=== PATIENT | male | born 1960 | race Caucasian/White ===

== ENCOUNTER 2016-06-08 13:07 | Emergency (ER) | payer OTHER ==
[~2016-06-08] VITALS: Ht 167.6 cm; Wt 117.0 kg
[~2016-06-08 13:07] MED LIST: CYAN10005 PO; ESCI10TA17 PO; ESOM40GR PO; IPRA1AER2 INH; MONT1TAB3 PO; MULT-506 PO; PREG100C PO; ZOLP10TA PO
[2016-06-08 13:10] VITALS: TEMP 36.8; Ht 167.6 cm; Wt 117.0 kg
[2016-06-08] MEDS ORDERED: PRLSR20 PO (13:50)
[2016-06-08] MEDS ORDERED: SODIUM CHLORIDE 0.9% 1000ML 500 ML IV STA (14:08)
[2016-06-08] MEDS ORDERED: SODIUM CHLORIDE 0.9% 1000ML 1,000 ML IV STA (14:08)
[2016-06-08 14:19] LABS: BASO % 0.6 %; BASO ABS # 0.06 K/uL (0-0.2); COMPLETE YES; EOS % 1.3 %; HEMATOCRIT 43.1 % (42-52); IG% 0.4 %; LYMPH % 18.5 %; LYMPH ABS # 1.73 K/uL (1.2-3.4); MEAN CELL VOLUME 86.7 fL (80-100); MEAN CORPUSCULAR HEMOGLOBIN 30.4 pg (25-34); MEAN PLATELET VOLUME 9.4 fL (7.4-10.4); MONO % 8.5 %; NEUT % 70.7 %; PLATELET COUNT 236 K/uL (130-400); RED BLOOD COUNT 4.97 M/uL (4.7-6.1); WHITE BLOOD COUNT 9.34 K/uL (4.8-10.8)
--- NOTE | 2016-06-08 14:23 | EMERGENCY ROOM VISIT NOTE ---
History Report prepared by Mary: Halina Washington Under the Supervision of: Dr. Chavez Roberts M.D. First contact with patient: 14:00 Chief Complaint: SYNCOPE Stated Complaint: TONGUE IS NUMB, SYNCOPE Nursing Triage Summary: patient states while at camp making a fire he "felt funny" patient states girlfriend told him he fell backwards and hit his head off the ground. patient denies neck pain. states he does have a headache. "I think I bit my tongue" I havent been eating well, my mother just last week. I used to be a diabetic but after my heart surgery, I havent been diabetic since. History of Present Illness The patient is a 56 year old male who presents to the Emergency Room with complaints of a sudden syncopal episode that occurred three hours ago. He currently rates his discomfort as a 5/10 in severity. The patient states that in the past he had issues with diabetes. He states that once he had his gastric bypass surgery, he no longer had to take medications for diabetes. The patient states that today he was at his camp and went outside to make a fire. He states that he felt that his blood glucose was dropping so he put a sugar pill in his mouth. The patient states that he was told by his girlfriend that he fell backwards hitting his head, and clenched up. He states that he does not remember the series of events. The patient states that his girlfriend gave him three juice boxes and states that the first thing he remembers is sitting on the deck eating poptarts. The patient states that after he had the poptarts and juice boxes, his blood glucose was 165. He states that he now feels back to baseline, other than noting that he bit his tongue and it feels numb now. The patient states that prior to the event he felt like he was floating. He denies any chest pain or shortness of breath. The patient denies any recent illness. He denies any diarrhea, vomiting, loss of control of his bowel or bladder, or urinary symptoms. The patient states that he ate breakfast this morning. He denies any history of seizures or previous syncopal episodes. The patient notes that he has been under increased stress recently due to recently finding his mother suddenly one morning. Source of History: patient Onset: three hours ago Position: other (global) Symptom Intensity: 5/10 Quality: other (syncopal episode) Timing: other (sudden) Associated Symptoms: + numbness (tongue), No SOB, No chest pain, No diarrhea , No urinary symptoms, No vomiting Note: Associated Symptoms: tongue bite, felt like he was floating Review of Systems See HPI for pertinent positives & negatives. A total of 10 systems reviewed and were otherwise negative. Past Medical & Surgical Medical Problems: (1) Asthma (2) Diabetes mellitus type 2 (3) Hyperlipidemia (4) Hypertensive disorder, systemic arterial (5) HYPOVENTILATION OBESITY SYNDROM (6) Morbid obesity (7) P[place]AN Family History Diabetes mellitus FH: heart disease FHx: cancer Social History Smoking Status: Former Smoker Alcohol Use: none Marital Status: in relationship Housing Status: lives with family Occupation Status: unemployed Current/Historical Medications Scheduled Cyanocobalamin (Vitamin B-12), 1,000 MCG PO WK Escitalopram (Lexapro), 10 MG PO HS Montelukast Sodium (Singulair), 10 MG PO HS Multivitamin (Multivitamin), 1 TAB PO QAM Omeprazole (Prilosec), 40 MG PO DAILY Pregabalin (Lyrica), 100 MG PO BID Zolpidem Tartrate (Ambien), 10 MG PO HS Scheduled PRN Ipratropium-Albuterol (Combivent Respimat), 1 PUFFS INH QID PRN for Shortness of Breath Allergies Coded Allergies: Azithromycin (Verified Allergy, Severe, SHORTNESS OF BREATH, 07/09/15) Penicillins (Verified Allergy, Severe, SHORTNESS OF BREATH, 07/09/15) Erythromycin (Verified Allergy, Unknown, E-MYCIN, 07/09/15) Quinolones (Verified Allergy, Unknown, `, 07/09/15) Physical Exam Vital Signs Date Time Temp Pulse Resp B/P Pulse Ox O2 Delivery O2 Flow Rate FiO2 06/08/16 16:53 66 18 160/110 95 06/08/16 16:00 63 18 155/115 96 Room Air 06/08/16 14:52 74 15 143/106 92 Room Air 06/08/16 14:22 79 149/108 99 Room Air 83 182/124 86 163/113 06/08/16 13:34 86 06/08/16 13:10 36.8 91 18 177/105 95 Room Air Physical Exam GENERAL: Patient is in no acute distress. HEENT: No acute trauma, normocephalic atraumatic, mucous membranes moist, no obvious tongue bite, no nasal congestion, no scleral icterus. NECK: No stridor, no adenopathy, no meningismus, trachea is midline. LUNGS: Clear to auscultation bilaterally, no wheeze, no rhonchi, breath sounds equal. HEART: Without murmurs gallops or rubs, regular rate and rhythm. ABDOMEN: Soft, nontender, bowel sounds positive, no hernias, no peritonitis. EXTREMITIES: No cyanosis or edema, full range of motion of all the joints without pain or difficulty, no signs for acute trauma. NEUROLOGIC: Oriented x 3, no acute motor or sensory deficits, no focal weakness. SKIN: No rash, no jaundice, no diaphoresis. Medical Decision & Procedures ER Provider Diagnostic Interpretation: Orthostatic vital signs are negative X ray results and stated below per my interpretation and radiologist interpretation. Other radiology results and stated below per my review and radiologist interpretation: HEAD CT NONCONTRAST CT DOSE: 623.48 mGy.cm HISTORY: Mental status change EVALUATE ALTERED MENTAL STATUS/WEAKNESS TECHNIQUE: Multiaxial CT images of the head were performed without the use of intravenous contrast. Comparison: None. Findings: The paranasal sinuses and mastoid air cells are clear. The calvarium and skull base are intact. The ventricles and sulci are within normal limits. There is no mass, hematoma, midline shift, or acute infarct. Impression: No acute intracranial abnormality. Electronically signed by: Uriah Lepe M.D. 06/08/2016 2:50 PM Dictated Date/Time: 06/08/2016 2:49 PM CHEST ONE VIEW PORTABLE CLINICAL HISTORY: EVALUATE ALTERED MENTAL STATUS/WEAKNESS dyspnea COMPARISON STUDY: 10/25/2014 FINDINGS: Mild cardiomegaly. Mild prominence pulmonary vasculature. Diaphragms smooth. IMPRESSION: Early congestive heart failure Electronically signed by: Uirah Lepe M.D. 06/08/2016 2:34 PM Dictated Date/Time: 06/08/2016 2:33 PM Laboratory Results 06/08/16 13:29 Red Blood Count 4.97, Mean Corpuscular Volume 86.7, Mean Corpuscular Hemoglobin 30.4, Mean Corpuscular Hemoglobin Concent 35.0, Mean Platelet Volume 9.4, Neutrophils (%) (Auto) 70.7, Lymphocytes (%) (Auto) 18.5, Monocytes (%) (Auto) 8.5, Eosinophils (%) (Auto) 1.3, Basophils (%) (Auto) 0.6, Neutrophils # (Auto) 6.60, Lymphocytes # (Auto) 1.73, Monocytes # (Auto) 0.79, Eosinophils # (Auto) 0.12, Basophils # (Auto) 0.06 06/08/16 13:29 Test 06/08/16 13:29 06/08/16 16:19 White Blood Count 9.34 K/uL (4.8-10.8) Red Blood Count 4.97 M/uL (4.7-6.1) Hemoglobin 15.1 g/dL (14.0-18.0) Hematocrit 43.1 % (42-52) Mean Corpuscular Volume 86.7 fL (80-100) Mean Corpuscular Hemoglobin 30.4 pg (25-34) Mean Corpuscular Hemoglobin Concent 35.0 g/dl (32-36) Platelet Count 236 K/uL (130-400) Mean Platelet Volume 9.4 fL (7.4-10.4) Neutrophils (%) (Auto) 70.7 % Lymphocytes (%) (Auto) 18.5 % Monocytes (%) (Auto) 8.5 % Eosinophils (%) (Auto) 1.3 % Basophils (%) (Auto) 0.6 % Neutrophils # (Auto) 6.60 K/uL (1.4-6.5) Lymphocytes # (Auto) 1.73 K/uL (1.2-3.4) Monocytes # (Auto) 0.79 K/uL (0.11-0.59) Eosinophils # (Auto) 0.12 K/uL (0-0.5) Basophils # (Auto) 0.06 K/uL (0-0.2) RDW Standard Deviation 41.2 fL (36.4-46.3) RDW Coefficient of Variation 12.9 % (11.5-14.5) Immature Granulocyte % (Auto) 0.4 % Immature Granulocyte # (Auto) 0.04 K/uL (0.00-0.02) Anion Gap 12.0 mmol/L (3-11) Est Creatinine Clear Calc Drug Dose 105.8 ml/min Estimated GFR () 103.4 Estimated GFR (Non- 89.3 BUN/Creatinine Ratio 17.2 (10-20) Calcium Level 8.5 mg/dl (8.5-10.1) Total Bilirubin 0.2 mg/dl (0.2-1) Aspartate Amino Transf (AST/SGOT) 32 U/L (15-37) Alanine Aminotransferase (ALT/SGPT) 55 U/L (12-78) Alkaline Phosphatase 105 U/L (45-117) Pro-B-Type Natriuretic Peptide 22 pg/ml (0-900) Total Protein 8.0 gm/dl (6.4-8.2) Albumin 4.3 gm/dl (3.4-5.0) Globulin 3.7 gm/dl (2.5-4.0) Albumin/Globulin Ratio 1.2 (0.9-2) Thyroid Stimulating Hormone (TSH) 1.490 uIu/ml (0.300-4.500) Bedside Troponin I 0.000 ng/ml (0-0.045) Laboratory results reviewed by me. Medications Administered Medications (Trade) Dose Ordered Sig/Jenn Route Start Time Stop Time Status Last Admin Dose Admin Sodium Chloride (Nss 1000ml) 500 ml @ 999 mls/hr Q31M STAT IV 06/08/16 14:08 06/08/16 14:38 DC 06/08/16 14:08 999 MLS/HR ECG Indication: syncope Rate (beats per minute): 80 Rhythm: normal sinus Findings: no acute ischemic change, no ectopy ED Course 1402: The patient was evaluated in room A4B. A complete history and physical exam was performed. 1408: Ordered Sodium Chloride 1000 ml @ 200 mls/hr IV, Sodium Chloride 500 ml @ 999 mls/hr IV. 1555: I discussed the patients case with Dr. Guadarrama, Neurology. She states that she will follow up with the patient as an outpatient. 1623: I reevaluated the patient and he is doing fine. His girlfriend is at the bedside and confirmed the patients story of the series of events. 1633: I reevaluated the patient and he is resting comfortably. I discussed the exam findings with him and I discussed the treatment plan. He verbalized complete understanding and agreement. He is ready to go home. Medical Decision The patient is a 56 year old male who presents to the ED with complaints of syncope. Differential diagnoses considered include syncope, seizure, hypoglycemia, dysrhythmia, anemia, electrolyte imbalance, infection. The patient presents after a possible seizure-like event or syncopal episode. There is no leukocytosis or concerning anemia. No significant electrolyte abnormality, kidney failure or hepatitis. The patient appears to be in a euthyroid state. Neurologic exam was normal and nonfocal. EKG shows a normal sinus rhythm, no ischemia. Cardiac enzyme testing 2 does not suggest acute cardiac injury. Chest x-ray does not show any pneumonia, the radiologist questioned CHF but I thought the findings were more from his larger body habitus , BNP was not elevated. Brain CT showed no acute bleed or mass effect. Orthostatic vital signs were negative. The patient received IV saline, he has done well, he feels back to baseline. I did discuss his case with the on-call neurologist. Patient's blood pressure has been high here although, he states he does not have a history of high blood pressure. He is nervous and this may be the reason for the higher pressure. As he is asymptomatic, I do think we should have him follow with his doctor to see if his pressure is high in the office. No medications to be started today. The patient's event today may have been a syncopal event with some seizure-like activity, primary seizure is also a consideration. I suppose hypoglycemia is possible as well. The patient will follow with his doctor and with neurology, he was encouraged not to drive until given clearance. He can return here for any return of symptoms. Consults Time Called: 1524 Consulting Physician: Dr. Guadarrama, Neurology Returned Call: [phone] I discussed the patients case with Dr. Guadarrama, Neurology. She states that she will follow up with the patient as an outpatient. Impression Primary Impression: Syncope Additional Impression: Hypertension Scribe Attestation The scribe's documentation has been prepared under my direction and personally reviewed by me in its entirety. I confirm that the note above accurately reflects all work, treatment, procedures, and medical decision making performed by me. Departure Information Dispostion Home / Self-Care Referrals Jarrett Rousseau PA-C (PCP) Forms HOME CARE DOCUMENTATION FORM, IMPORTANT VISIT INFORMATION Patient Instructions My [facility] Additional Instructions rest stay well hydrated follow with your doctor for a recheck this week follow with neurology return if worsening do not drive until you receive clearance from your doctor or neurology all testing today was ok as we discussed Problem Qualifiers
[2016-06-08 14:27] LABS: BUN/CREATININE RATIO 17.2 (10-20); CALCIUM 8.5 mg/dl (8.5-10.1); CREATININE 0.96 mg/dl (0.60-1.40); POTASSIUM 3.9 mmol/L (3.5-5.1)
--- NOTE | 2016-06-08 14:35 | DIAGNOSTIC IMAGING REPORT ---
CHEST ONE VIEW PORTABLE CLINICAL HISTORY: EVALUATE ALTERED MENTAL STATUS/WEAKNESS dyspnea COMPARISON STUDY: 10/25/2014 FINDINGS: Mild cardiomegaly. Mild prominence pulmonary vasculature. Diaphragms smooth. IMPRESSION: Early congestive heart failure Electronically signed by: Uriah Lepe M.D. 06/08/2016 2:34 PM Dictated Date/Time: 06/08/2016 2:33 PM
[2016-06-08 14:37] LABS: ALB/GLOB RATIO 1.2 (0.9-2); THYROID STIMULATING HORMONE 1.49 uIu/ml (0.300-4.500)
--- NOTE | 2016-06-08 14:51 | DIAGNOSTIC IMAGING REPORT ---
HEAD CT NONCONTRAST CT DOSE: 623.48 mGy.cm HISTORY: Mental status change EVALUATE ALTERED MENTAL STATUS/WEAKNESS TECHNIQUE: Multiaxial CT images of the head were performed without the use of intravenous contrast. Comparison: None. Findings: The paranasal sinuses and mastoid air cells are clear. The calvarium and skull base are intact. The ventricles and sulci are within normal limits. There is no mass, hematoma, midline shift, or acute infarct. Impression: No acute intracranial abnormality. Electronically signed by: Uriah Lepe M.D. 06/08/2016 2:50 PM Dictated Date/Time: 06/08/2016 2:49 PM
[2016-06-08 16:53] VITALS: BP 160/110; PULSE 66; O2SAT 95
== END 2016-06-08 16:56 | disposition home or self-care (01) ==
LOC: C.EDB 13:09 → C.EDA 16:56
DX: R55 Syncope and collapse (principal); I10 Essential (primary) hypertension; Z98.84 Bariatric surgery status; E11.9 Type 2 diabetes mellitus without complications; J45.909 Unspecified asthma, uncomplicated; Z83.3 Family history of diabetes mellitus; Z87.891 Personal history of nicotine dependence

== ENCOUNTER → 2017-11-17 | Outpatient (CLI) | payer OTHER ==
[~2017-11-17] MED LIST changes: +ARFO15NE NEB; -ESOM40GR PO; -IPRA1AER2 INH; +OMEP40CA41 PO; -PREG100C PO
--- NOTE | 2017-11-18 05:18 | PAP/PSG TECHNICIAN REPORT ---
[facility] [employer] Polysomnogram Report Study name: None Report date: 11/18/2017 Study date: 11/17/2017 Referring Physician: TERI MORROW PA-C Name: RADHA GUSMAN Interpreting Physician: Adam Eden M.D. Date of : 1960 Head [employer] Baggage: Shana Edwards RPSGT. Sex: Male Age: 57 Study Type: PSG Weight: 218 lbs Height: 57 years, Height 5' 7" BMI: 34.14 Medications: LYRICA 100 MG, OXYCODONE-ACETAMINOPHEN 10-325 MG, ZOLPIDEM 10 MG, LEXAPRO 20 MG, SINGULAIR 10 MG, PRILOSEC 20 MG, LISINOPRIL 10 MG, ZYRTEC 10 MG, BENADRYL 25 MG, MULTI VIT Patient History 57 yr-old male here for a baseline study. He has had previous sleep testing. 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 He is back to assess his CHINMAY. His [employer] scale is 10. The test was started on room air. ETCO2 testing was not utilized during this study. Room 3 Parameters Monitored NPSG: E1-M2, E2-M1, Fp1-M2, Fp2-M1, F3-M2, F4-M2, F4-M1, C3-M2, C4-M2, C4-M1, O1-M2, O2-M2, O2-M1, T3-M2, T4-M1, P3-M2, P4-M1, CHIN1, CHIN2, HR, EKG, Legs, PFLOW, SNOR, FLOW, CFLOW, Tidal Volume, THOR, ABDO, SpO2, PLTH, CPRESS, ETCO2 Wave, ETCO2, pH Sleep Architecture Sleep Stages Time at Lights Off 9:15:23 PM STAGES Time (min.) TST (%) Time at Lights On 4:31:53 AM Wake 39.0 -- Total Recording Time (TRT) 436.50 min. N1 177.0 45 Total Sleep Period (TSP) 424.0 min. N2 187.0 47 Total Sleep Time (TST) 397.5min. N3 0.0 0 Awake Time 39.0 min. REM 33.5 8 Wake after Sleep Onset 36.5 min. Sleep Efficiency (SE) 91 % Sleep Onset Latency (DARLENE) 2.5 min. Number of Stage 1 Shifts None Awakenings 40 Stage Changes 130 Number of REM periods 1 REM 33.5 8 REM Latency 184.0 min. NREM 364.0 92 Body Position Analysis Supine Right Left Side Prone Vertical Total Sleep Time (min.) 228.5 200.0 0.0 199.96 0.0 0.0 Total Sleep Time (%) 50% 50% 0% 50 0% N/A% Total Sleep Time REM (min.) 0.0 33.5 0.0 None 0.0 0.0 Total Sleep Time NREM (min.) 197.5 166.5 0.0 None 0.0 0.0 Intermittent Wake (min.) 31.0 8.0 0.0 None 0.0 0.0 Total Sleep Period (%) 51% None None None None None Arousals Myoclonus (PLM) * Events Count Index Events Count Index Spontaneous 30 5 Events Awake (PLMW) 131 201.5 Respiratory 140 22.5 Events Asleep w/ Arousal (PLMA) 22 3.3 PLM 22 3 Events Asleep w/o Arousal (PLMS) 433 65.4 Snoring 16 2 Total Asleep 455 68.7 Total 206 31 Total 586 81 Respiratory Analysis * CA OA MA CH H RERA Total Count 2 95 4 0 81 21 182 Index 0.3 14.3 0.6 0 12.2 3 30.6 Mean Duration 20.3 31.1 36.0 0.00 29.3 19.8 29.2 Longest Duration 21.4 58.9 43.1 0.00 43.1 24.2 80.1 Respiratory Event Summary Total Supine ~Supine Right Left Prone REM NREM Apneas Count 101 97 4 4 N/A N/A 1 100 Index 15.2 29 1 1.2 N/A N/A 2 16 Hypopneas (4% Desat) Count 81 44 37 37 N/A N/A 8 73 Index 12.2 13.4 11 11.1 N/A N/A 14.3 12.0 Apneas & All Hypopneas Count 182 141 41 41 N/A N/A 9 173 Index 27.5 43 12 12 N/A N/A 16.1 28.5 Respiratory Events (Twister Hand+All Hyp+RERA) Count 182 156 47 47 N/A N/A 9 173 Index 30.6 47 14 14.1 N/A N/A 16.1 32.0 Respiratory Related Arousal Count 140 156 28 28 N/A N/A 3 146 Index 22.5 37 8 8 N/A N/A 5 24 Snoring Analysis Supine Right Left Prone REM NREM Total Snore duration 73.4 min Snores count 993 1,261 N/A N/A 193 2,061 2,254 Snore mean duration 2.0 Sec Snores index 302 378 N/A N/A 345.7 339.7 340.2 TST with snoring (%) 18.5% Desaturation Event Summary: Minimum %SpO2 Event Count Mean/Min/Max Duration(sec.) Desaturation Index % Time In Bed > 90 169 31.0 / 6.0 / 56.5 30.9 79.9 86 - 90 3 21.8 / 18.0 / 24.8 2.6 16.7 81 - 85 0 N/A 0.0 3.4 76 - 80 0 N/A 0.0 0.0 71 - 75 0 N/A 0.0 0.0 66 - 70 0 N/A 0.0 0.0 61 - 65 0 N/A 0.0 0.0 56 - 60 0 N/A 0.0 0.0 51 - 55 0 N/A 0.0 0.0 < 50 0 N/A 0.0 0.0 Total REM NREM Awake <50% 0.0 min. 0.0 min. 0.0 min. 0.0 min. 51 - 60% 0.0 min. 0.0 min. 0.0 min. 0.0 min. 61 - 70% 0.0 min. 0.0 min. 0.0 min. 0.0 min. 71 - 80% 0.2 min. 0.0 min. 0.2 min. 0.0 min. 81 - 90% 82.7 min. 9.6 min. 65.5 min. 7.6 min. 91 - 100% 328.5 min. 23.9 min. 282.6 min. 21.9 min. Average 92 91 92 92 Minimum SpO2 77 88 77 82 Desaturation Event Index 23.2 16.1 24.4 20.0 # Desat. Events below 89% 62 3 57 2 Time(%) with Saturation below 89% 8.4 0.3 7.1 1.0 Time(min.) with Saturation below 89% 34.6 1.4 29.3 3.9 Heart Rate Analysis Min (bpm) Max (bpm) Average (bpm) Awake 46 130 57 NREM 45 167 55 REM 49 70 56 Overall 45 167 55 Supplemental O2 Values Minimum O2 level: None Value Start Time End Time Head [employer] Comments Mr. Gusman slept in the right and supine positions. No cardiac arrhythmias were noted. PLMs were noted. No bruxism noted. Snoring was noted and scored as a 3 on a scale of 1 through 5. (0=no snoring, 5=snoring loud enough to be heard through a closed door or down the [address]ro way). He woke up to use the restroom one time during the night. After he used the restroom, he stated that he was wide awake and ready to go. The test was ended around 4:30 am. Mr. Gusman stated that he slept about the same as usual. The final report will be interpreted and signed by a sleep physician. The completed physician report will then be placed in the patient medical record. Therapy (cm H2O) 0 TIB (min.) 436.5 TST (min.) 397.5 Sleep Onset (min.) 2.5 REM Onset From Sleep (min.) 184.0 Sleep Efficiency % 91 Wakefulness (%) 9 Wakefulness (min.) 39.0 NREM 1 (%) 45 NREM 1 (min.) 177.0 NREM 2 (%) 47 NREM 2 (min.) 187.0 NREM 3 (%) 0 NREM 3 (min.) 0.0 REM (%) 8 REM (min.) 33.5 # Arousals 206 Arousal Index 31 # Snore 2,254 Snore Index 340.2 AHI 27.5 AHI Supine 43 AHI Non-Supine 12 NREM AHI 28.5 REM AHI 16.1 RDI 30.6 # Obstructive Apnea 95 # Central Apnea 2 # Mixed Apnea 4 # Hypopneas 81 RERAs 21 Total Respiratory Events 212 Time Below SpO2 89% (min.) 30.7 Mean NREM SpO2 (%) 92 Mean REM SpO2 (%) 91 Mean Sleep SpO2 (%) 92 Min NREM SpO2 (%) 77 Min REM SpO2 (%) 88 Position Supine (min.) 228.5 Position Non-supine (min.) 200.0 LM Index Sleep 68.7 LM Index NREM 72.2 LM Index REM 30.4 Mean Heart Rate (bpm) 55 Min Heart Rate (bpm) 45
--- NOTE | 2017-11-20 17:23 | POLYSOMNOGRAPH REPORT ---
CLINICAL DATA: A 57-year-old male with BMI of 34.14, referred by Jeannie Monge PA-C. The patient had a previous diagnosis of sleep apnea and then had bariatric surgery. He returns to reassess the presence or absence of sleep apnea. SLEEP ARCHITECTURE: Total sleep period was 424 minutes. Total sleep time was 397.5 minutes divided between 364 minutes of non-REM sleep and 33.5 minutes of REM sleep. Sleep latency was 2.5 minutes. REM latency was 184 minutes. Sleep efficiency was 91%. Wake after sleep onset was 36 minutes. Sleep consisted of stage N1 45%, stage N2 47%, and REM 8%. AROUSAL DATA: 206 arousals were recorded for an index of 31 per hour. PLM DATA: 455 limb movements during sleep were noted for an index of 16.7 per hour with arousal index of 3.3 per hour. RESPIRATORY DATA: Mrqnsyni-ku-dacene sleep apnea/hypopnea was noted. The AHI was 27.5. The RDI was 30.6. There were 2 central, 95 obstructive and 4 mixed apneic episodes. The longest duration apnea was 59 seconds. There were 81 hypopneic episodes. The longest hypopneic episode was 43 seconds. There were 21 RERAs. The longest RERA was 24.2 seconds. OXIMETRY DATA: Nocturnal hypoxemia was seen. Oxygen willy was 77%. Mean saturation was 92%. EKG: Heart rates ranged from 45-167 beats per minute. No arrhythmias were noted. LOADER OPERATOR'S COMMENTS: The patient slept in the right and supine position. Snoring was moderate, rated 3 on a scale of 1-5. IMPRESSION: [id number]-[id number] sleep apnea/hypopnea with an AHI of 27.5 and RDI of 30.6. RECOMMENDATIONS: The patient should be considered for repeat sleep study with CPAP or use of auto CPAP. [facility]
== END | disposition home or self-care (01) ==
LOC: C.NEUR 20:00
PROVIDERS: ATTEND Physician Assistant
DX: G47.30 Sleep apnea, unspecified (principal)

== ENCOUNTER 2021-10-09 06:31 | Inpatient (IN) ==
--- NOTE | 2021-09-05 14:29 | PAT Medication Instructions ---
Medication Instructions Date of Service September 05, 2021 Home Medications acetaminophen 650 mg tablet,extended release 1,300 mg PO Q12H PRN albuterol sulfate 90 mcg/actuation aerosol inhaler 2 puff INHALATION QID PRN cetirizine 10 mg capsule (Zyrtec) 10 mg PO QAM escitalopram oxalate 20 mg tablet (Lexapro) 20 mg PO QPM gabapentin 100 mg tablet 100 mg PO QAM ibuprofen 200 mg tablet 600 mg PO Q6H PRN lisinopril 20 mg tablet 20 mg PO QAM montelukast 10 mg tablet (Singulair) 10 mg PO QAM multivitamin 1 tab PO QAM omeprazole 20 mg capsule,delayed release 20 mg PO QAM pregabalin 100 mg capsule (Lyrica) 100 mg PO BID ASK your surgeon for instructions ibuprofen 200 mg tablet 600 mg PO Q6H PRN DO NOT take the morning of surgery cetirizine 10 mg capsule (Zyrtec) 10 mg PO QAM lisinopril 20 mg tablet 20 mg PO QAM montelukast 10 mg tablet (Singulair) 10 mg PO QAM multivitamin 1 tab PO QAM Take morning of surgery With a small sip of water, OTHERWISE NOTHING TO EAT OR DRINK AFTER MIDNIGHT: acetaminophen 650 mg tablet,extended release 1,300 mg PO Q12H PRN (if needed) albuterol sulfate 90 mcg/actuation aerosol inhaler 2 puff INHALATION QID PRN (use if needed; please bring with you to hospital day of surgery if possible) gabapentin 100 mg tablet 100 mg PO QAM omeprazole 20 mg capsule,delayed release 20 mg PO QAM pregabalin 100 mg capsule (Lyrica) 100 mg PO BID Take evening before surgery acetaminophen 650 mg tablet,extended release 1,300 mg PO Q12H PRN (if needed) albuterol sulfate 90 mcg/actuation aerosol inhaler 2 puff INHALATION QID PRN (if needed) escitalopram oxalate 20 mg tablet (Lexapro) 20 mg PO QPM pregabalin 100 mg capsule (Lyrica) 100 mg PO BID Other Notes If you have any questions please call us at [phone] or [phone] or [phone] or [phone]
--- NOTE | 2021-09-06 08:59 | Anesthesiology Consultation ---
Date of Service September 06, 2021 Assessment & Plan (1) Encounter for pre-operative examination: - Case discussed with Dr. Alonso who advised patient take 2 puffs of inhaler prior to surgery and is otherwise acceptable risk to proceed pending anesthesiologist evaluation am DOS. Pt verbalized understanding, denied questions or concerns. - bilat vs staged TKA: Pt states discussed this with surgeon and is aware of risks, plans to proceed with bilat TKA. - COVID screening: Per assessment on 09/06/2021: Travel screen negative, no known COVID-19 positive contacts or current COVID-19 related symptoms in past 2 weeks. Surgeon arranging preop COVID testing, scheduled 10/07/2021. Awaiting results. Chart Review Chart Review: Acceptable Risk for Surgery and Patient seen in Pre Admission Testing Teaching & Discussion Pre-Anesthesia Teaching/Discussion Notes: Instructed NPO after midnight before surgery, except medications with 15 cc of water. Medication instructions provi ded according to the PAT guidelines. History Surgery Operation Date: 10/09/21 07:00 Proposed Procedures p Total Knee Arthroplasty Bilateral - Jerardo Plascencia DO Height/Weight Height: 5 ft 6 in Weight: 108.4 kg Allergies Allergy/AdvReac Type Severity Reaction Status Date / Time Penicillins Allergy Severe SHORTNESS Verified 09/05/21 08:50 OF BREATH azithromycin Allergy Unknown Difficulty Verified 09/05/21 08:50 Breathing erythromycin base Allergy Unknown E-MYCIN-HIV Verified 09/05/21 08:50 ES Quinolones Allergy Unknown Unknown Verified 09/05/21 08:50 DOGS Allergy Intermediate SNEEZES, Uncoded 09/05/21 08:50 ITCHY WATERY EYES Medications Home Medications Medication Instructions Recorded Confirmed Last Taken acetaminophen 650 mg 1,300 mg PO Q12H PRN 09/05/21 09/05/21 Unknown tablet,extended release albuterol sulfate 90 mcg/actuation 2 puff INHALATION QID PRN 09/05/21 09/05/21 Unknown aerosol inhaler cetirizine 10 mg capsule (Zyrtec) 10 mg PO QAM 09/05/21 09/05/21 Unknown escitalopram oxalate 20 mg tablet 20 mg PO QPM 09/05/21 09/05/21 Unknown (Lexapro) gabapentin 100 mg tablet 100 mg PO QAM 09/05/21 09/05/21 Unknown ibuprofen 200 mg tablet 600 mg PO Q6H PRN 09/05/21 09/05/21 Unknown lisinopril 20 mg tablet 20 mg PO QAM 09/05/21 09/05/21 Unknown montelukast 10 mg tablet 10 mg PO QAM 09/05/21 09/05/21 Unknown (Singulair) multivitamin 1 tab PO QAM 09/05/21 09/05/21 Unknown omeprazole 20 mg capsule,delayed 20 mg PO QAM 09/05/21 09/05/21 Unknown release pregabalin 100 mg capsule (Lyrica) 100 mg PO BID 09/05/21 09/05/21 Unknown Past Medical History Medical History (Updated 09/10/21 @ 08:18 by Nicolle Raygoza PA-C) Asthma (05/15/11) last rescue inhaler use > 6 months ago; reports occasional exacerbation with seasonal allergies Atrial fibrillation (08/07/11) s/p ablation per pt-now follows with PCP COPD (chronic obstructive pulmonary disease) Depression GERD (gastroesophageal reflux disease) controlled, stable per pt Hypertension controlled, stable per pt Morbid obesity (05/15/11) WT LOSS 200 LBS SINCE GASTRIC BYPASS Sleep apnea no device Type 2 diabetes mellitus hx IDDM, pt states no longer needing medication since gastric bypass; A1c 5.7% 09/2021 Patient denies h/o stroke, seizures, heart attack, heart failure, blood clots or blood transfusions. Exercise / Class Metabolic Activity II 4-5 Yardwork/Stairs/Walk up hill (denies CP or SOB with 1 FOS) Past Family History Family History (Updated 09/05/21 @ 09:04 by Kerrie Rasheed RN) Father Family history of diabetes mellitus Past Surgical History Surgical History (Updated 09/05/21 @ 09:04 by Kerrie Rasheed RN) H/O cardiac radiofrequency ablation 5 YRS AGO History of appendectomy History of arthroscopy LEFT KNEE History of cardioversion History of cholecystectomy History of gastric bypass History of shoulder surgery LEFT Past Anesthesia History No Hx of Anesthesia Complications and No Family Hx of Anesthesia Complications History of PONV No Hx of PONV and No Hx of Motion Sickness Social History Smoking Status: Former smoker Do You Dip or Chew Tobacco: Yes (1 can q 2 days-advised) Smoking End Date: QUIT 15 YRS AGO Hx Alcohol Use: No Hx Substance Use: No Review of Systems Patient denies chest pain, shortness of breath, dyspnea on exertion, fever, chills, cough, wheezing, dizziness, lightheadedness, visual changes or palpitations. Physical Exam Vital Signs Vitals BP 102/64 manual P 53 TEMP 98.5 SP02 94% on RA RESP 17 Physical Full cervical extension range of motion without pain TMD 3.5 finger breaths Mallampati Score 4 Dentition: full lower dentures; denies chipped or loose teeth, implants or bridges Lungs: normal respiratory effort. Good air movement, slight wheezing at end expiration throughout Cardiac: regular rate and rhythm, no murmurs noted Carotid arteries: negative bruit bilat Lab Results Anesthesia Preop Results Results Anesthesia Widget: WBC 6.18 K/uL (4.8-10.8) 09/06/21 Hgb 13.3 g/dL (14.0-18.0) L 09/06/21 Hct 38.9 % (42-52) L 09/06/21 Plt 216 K/uL (130-400) 09/06/21 Na 138 mmol/L (136-145) 09/06/21 K 4.3 mmol/L (3.5-5.1) 09/06/21 Cl 104 mmol/L (98-107) 09/06/21 CO2 29 mmol/L (21-32) 09/06/21 BUN 10 mg/dl (6-23) 09/06/21 Creat 0.89 mg/dl (0.6-1.4) 09/06/21 Glucose Level 77 mg/dl (70-99(Fasting)) 09/06/21 PT 11.0 Seconds (9.0-12.0) 09/06/21 PTT 32.1 Seconds (21.0-31.0) H 09/06/21 INR 1.0 (0.9-1.1) 09/06/21 HA1c 5.7 % (4.5-5.6) H 09/06/21 Urine Color Yellow 09/06/21 Urine Appearance Clear (Clear) 09/06/21 Urine pH 6.5 (4.5-7.5) 09/06/21 Urine Specific [place] 1.006 (1.000-1.030) 09/06/21 Urine Protein Negative (Negative) 09/06/21 Urine Glucose (UA) Negative (Negative) 09/06/21 Urine Ketones Negative (Negative) 09/06/21 Urine Blood Negative (Negative) 09/06/21 Urine Nitrite Negative (Negative) 09/06/21 Urine Bilirubin Negative (Negative) 09/06/21 Urine Urobilinogen Negative (Negative) 09/06/21 Urine Leukocyte Esterase Negative (Negative) 09/06/21 Blood Type AB Negative 09/06/21 Antibody Screen NEGATIVE 09/06/21 Testing Electrocardiogram Date: 09/06/21 Sinus bradycardia, rate 51 bpm Chest X-Ray Date: 09/06/21 Cardiomediastinal and hilar silhouettes are within normal limits. There is no pneumothorax, pleural effusion, airspace consolidation or overt pulmonary edema. Degenerative changes of the shoulders and spine. Sigmoidal thoracolumbar scoliosis. Likely chronic mid thoracic compression deformities. Cholecystectomy clips. IMPRESSION: No acute process.
--- NOTE | 2021-09-16 08:12 | History & Physical Report ---
Date of Service September 16, 2021 date of surgery: 10/09/21 Procedure: Bilateral Total Knee Arthroplasties Surgeon: Jerardo Plascencia Assessment & Plan (1) Degenerative arthritis of knee, bilateral: Plan: Presents for preop evaluation prior to bilateral total knee replacements at [facility]. He has failed conservative measures including left knee arthroscopy in 2006 and again in 2012, would like to proceed with bilateral knee replacement. He is scheduled for [facility] patient matched bilateral total knees. Discussed discharge to home with home health physical therapy. We will plan also on Xarelto x1 month for DVT prophylaxis. The risks and benefits have been discussed including, but not limited to, risk of infection, nerve injury, stiffness, loss of motion, failure to improve, etc. Reasonable outcomes and options of treatment were discussed. An explanation of appropriate alternatives to the procedure that may be advantageous were discussed and their risks and benefits, as well as the risks and benefits of not proceeding with treatment. I offered to answer any additional inquiries concerning the treatment involved. All the patient's questions were answered. The patient is agreeable, understanding of the treatment plan and alternatives, and wishes to proceed with the treatment plan. History of Present Illness Chief Complaint: bilateral knee pain Primary Care Provider: Nicole Osborne John Paul is a 61 year old male who complains of bilateral knee pain, presents for pre-op evaluation prior to bilateral total knee replacements at [facility]. He complains of pain, decreased range of motion and stiffness in both of his knees. Currently the patient states that the symptoms are moderate-severe and rates both as 7/10. The pain is described as aching, sharp and throbbing. His symptoms are aggravated by ascending stairs, daily activities, first steps while awake walking. he has also had prior left knee arthroscopy. Allergies Allergy/AdvReac Type Severity Reaction Status Date / Time Penicillins Allergy Severe SHORTNESS Verified 09/05/21 08:50 OF BREATH azithromycin Allergy Unknown Difficulty Verified 09/05/21 08:50 Breathing erythromycin base Allergy Unknown E-MYCIN-HIV Verified 09/05/21 08:50 ES Quinolones Allergy Unknown Unknown Verified 09/05/21 08:50 DOGS Allergy Intermediate SNEEZES, Uncoded 09/05/21 08:50 ITCHY WATERY EYES Home Medications Medication Instructions Recorded Confirmed Type acetaminophen 650 mg 1,300 mg PO Q12H PRN 09/05/21 09/05/21 History tablet,extended release albuterol sulfate 90 mcg/actuation 2 puff INHALATION QID PRN 09/05/21 09/05/21 History aerosol inhaler cetirizine 10 mg capsule (Zyrtec) 10 mg PO QAM 09/05/21 09/05/21 History escitalopram oxalate 20 mg tablet 20 mg PO QPM 09/05/21 09/05/21 History (Lexapro) gabapentin 100 mg tablet 100 mg PO QAM 09/05/21 09/05/21 History ibuprofen 200 mg tablet 600 mg PO Q6H PRN 09/05/21 09/05/21 History lisinopril 20 mg tablet 20 mg PO QAM 09/05/21 09/05/21 History montelukast 10 mg tablet 10 mg PO QAM 09/05/21 09/05/21 History (Singulair) multivitamin 1 tab PO QAM 09/05/21 09/05/21 History omeprazole 20 mg capsule,delayed 20 mg PO QAM 09/05/21 09/05/21 History release pregabalin 100 mg capsule (Lyrica) 100 mg PO BID 09/05/21 09/05/21 History Past Med/Surg History Medical History Asthma (05/15/11) last rescue inhaler use > 6 months ago; reports occasional exacerbation with seasonal allergies Atrial fibrillation (08/07/11) s/p ablation per pt-now follows with PCP COPD (chronic obstructive pulmonary disease) Depression GERD (gastroesophageal reflux disease) controlled, stable per pt Hypertension controlled, stable per pt Morbid obesity (05/15/11) WT LOSS 200 LBS SINCE GASTRIC BYPASS Sleep apnea no device Type 2 diabetes mellitus hx IDDM, pt states no longer needing medication since gastric bypass; A1c 5.7% 09/2021 Surgical History H/O cardiac radiofrequency ablation 5 YRS AGO History of appendectomy History of arthroscopy LEFT KNEE History of cardioversion History of cholecystectomy History of gastric bypass History of shoulder surgery LEFT Family History Father Family history of diabetes mellitus Social History Smoking Status: Former smoker Second Hand Exposure: No; Hx Alcohol Use: No Hx Substance Use: No Preferred Language: Greek Communication Ability: Effective Trimmer Hand Required: No Beliefs That Will Affect Care: None Current Living Situation: Spouse and Family current occupational status: disabled Feels Safe at Home: Yes Assistive Devices: Cane, Denture - Lower and Glasses Review of Systems Review of Systems: All systems reviewed & are unremarkable except as noted in HPI & below Constitutional: no fever, no chills and no sweats Respiratory: no cough and no dyspnea Cardiovascular: no chest pain, no dyspnea and no orthopnea Gastrointestinal: no abdominal pain, no nausea and no vomiting Musculoskeletal: as per Subjective / HPI Physical Exam Physical Exam: HT: 5 ft 6in WT: 108.4kg Constitutional: WD/WN, vitals as above no acute distress Respiratory: normal respiratory effort, lungs clear to auscultation no respiratory distress, no labored breathing and does not use accessory muscles Cardiovascular: RRR, no murmur, no edema Gastrointestinal (Abdomen): normal bowel sounds, soft, nontender, no hepatosplenomegaly Musculoskeletal: Bilateral knee Physical exam Overall patient has varus alignment bilaterally, there is no atrophy or ecchymosis noted, +1 suprapatellar effusion in both knees, positive tenderness to both medial and lateral joint lines right knee, more medial sided tenderness to the left knee. negative patellar apprehension, positive crepitation noted to both knees with active ROM. bilateral knees stable to valgus and varus stress, katie negative, posterior drawer negative. Range of motion right knee 0/3/110, left knee 0/3/115. lower extremities are neurovascularly intact, calf soft and non tender, DP pulse +2 bilaterally. Results & Data Results & Data ([facility]) Diagnostic Findings Bilateral Knee X-ray: bilateral knee series confirm advanced degenerative changes bilateral knees, greatest medial compartments and patellofemoral joints, showing joint space narrowing, osteophyte formation and subchondral sclerosis. no acute bony pathology noted.
[~2021-10-09 06:31] MED LIST changes: +ALLERGY Noted to ORDERED Medication SCH; -ARFO15NE NEB; +BUPIVACAINE 0.5 % 5 MG/1 ML PF 10ML VIAL ONE; -CYAN10005 PO; +CeleBREX 200 MG CAP PO SCH; +EPINEPHrine INJ 1 MG/ML AMP ONE; -ESCI10TA17 PO; +FAMOTIDINE 20 MG TAB PO SCH; +GABAPENTIN 600 MG DOSE PO SCH; +LR 500ML BOLUS, THEN 15ML/HR IV SCH; +METOCLOPRAMIDE HCL 10 MG TABLET PO SCH; -MONT1TAB3 PO; -MULT-506 PO; -OMEP40CA41 PO; +ROPIVACAINE 0.5% 5 MG/ML 30 ML VIAL ONE; +ROPIVACAINE 0.5% HCL/PF 150 MG, BUPIVACAINE 0.75% MPF 20 ML, EPINEPHrine 30MG/30ML (OR ... INSTIL SCH; +TRANEXAMIC ACID 1,000 MG **IV Intra-op IV SCH; +TRANEXAMIC ACID 1,000 MG **IV Pre-op IV SCH; +VANCOMYCIN HCL 1,500 MG in SODIUM CHLORIDE 0.9% 500 ML IV SCH; -ZOLP10TA PO; +ceFAZolin 2000MG 2,000 MG/15 ML SYR IV SCH; +dexAMETHasone 4 MG TAB PO SCH
[2021-10-09] MEDS ORDERED: MIDAZOLAM HCL 1 MG/ML 2ML VIAL ONE ×2 (06:48)
[2021-10-09] MEDS ORDERED: fentaNYL citrate 100 MCG/2 ML VIAL ONE ×2 (06:49→11:19)
[2021-10-09] MEDS ORDERED: PROPOFOL IV EMULSION 10 MG/ML 20 ML VIAL IV ONE ×2 (06:49→10:21)
[2021-10-09] MEDS ORDERED: LIDOCAINE 2% 2 ML VIAL/AMP(20MG/ML) INFIL ONE (06:50)
[2021-10-09] MEDS ORDERED: ONDANSETRON INJ 2 MG/ML 2 ML VIAL ONE (06:50)
--- NOTE | 2021-10-09 07:12 | History & Physical Bridge Note ---
Date of Service October 09, 2021 History & Physical Bridge Note I have examined the patient, reviewed the History & Physical and in the interval since the performance of the History & Physical I have noted the following changes of clinical significance: no changes noted
[2021-10-09] MEDS ORDERED: Nursing to Pharmacy Communication SCH (07:15)
--- NOTE | 2021-10-09 10:43 | Operative Report ---
Post Operative Report Pre & Post Diagnosis Operation Date: 10/09/21 08:30 Pre-Op Diagnosis: Right Knee Osteoarthritis, Left Knee Osteoarthriti Post-Op Diagnosis: Right Knee Osteoarthritis, Left Knee Osteoarthriti I identified the patient and participated in the time-out.: Yes Procedure Operation Date: 10/09/21 08:30 Actual Procedures p Bilateral Total Knee Arthroplasty(Bilateral) right side femur 5 tibia 5 polyfifteen patella 32 left knee femur 6 tibia 6 polytwelve patella 32 Jerardo Plascencia DO Surgeon Jerardo Plascencia DO Cooperative Education Director Camden TERRELL Estimated Blood Loss 10 Findings Consistent with Post-Op Diagnosis Patient presents with severe end-stage tricompartmental degenerative joint disease bilaterally with varus alignment marginal osteophytes subchondral sclerosis eburnated [id number] bilateral varus knees with eburnated bone loss moderate to large effusions Specimens Bone and cartilage Anesthesia Type MAC Spinal Regional Complications none Disposition Accompanied Patient To Recovery: No Disposition: Recovery Room Indications Patient has severe end-stage tricompartmental degenerative joint disease bilateral knees no response to conservative management patient failed attempted conservative management clinic physical therapy anti-inflammatories relative rest activity modification corticosteroid injection viscosupplementation the above intraoperative findings were noted Description of Procedure After proper prepping and draping of the bilateral lower extremities, an anterior midline incision was made over the region of the extensor extensor mechanism of the left knee. After meticulous hemostasis was obtained and maintained in subcutaneous tissues a medial parapatellar incision was made The patella was subluxed lateralward the medial lateral gutter were cleaned from any hypertrophic synovitis and scar tissue of the distal femoral block was placed and the distal femoral osteotomy cut was made subsequently the chamfers anterior and posterior osteotomy cuts were made utilizing the 4-in-1 block the tibia was subsequently subluxed anteriorward medial and ateral meniscal remnants were excised in their entirety remnants of the anterior and posterior cruciate ligaments were excised in their entirety excellent exposure of the proximal tibia was obtained the tibial osteotomy guide was placed on the proximal tibial osteotomy cut was made once again the knee was irrigated with copious amounts of sterile saline solution the patella was subsequently everted lateralward thickened scar tissue around the patella was removed the patella was subsequently cut utilizing a freehand technique and was drilled prepared for final preparation and placement of patella socially flexion-extension gaps were checked and the equal and symmetric trials were placed to the appropriate femoral and tibial trials with poly-spacer being placed for equal flexion and extension gaps and full range of motion including extension to 0 and flexion to 140 the trial components after having been taken to recovery range of motion was subsequently removed meticulous hemostasis was obtained and maintained subsequently a knee block injection of joint cocktail including ropivacaine 0.5% 150 mg. Bupivacaine 0.5% epinephrine 1-200,030 mL's toradol 30 mg dexamethasone 4 mg ketamine 10 mg clonidine 100 micrograms normal saline solution 30 mg was infiltrated into the soft tissues of the posterior knee medial lateral gutters and periosteal synovium special attention was paid to protect neurovascular structures at all times subsequently trial components having been removed the knee was irrigated with sterile saline solution. debris was removed the proximal tibia was subsequently prepared and was made ready for the placement of the tibial component tibial component was also cemented and tamped into position the femoral component was subsequently placed and cemented in the position the patellar component was subsequently cemented in position because hemostasis once again obtained and maintained wound having been thoroughly irrigated with debridement and debridement lavage was performed as well as a medial parapatel lar incision closed with #1 Vicryl in interrupted fashion subcutaneous was closed with #2 Vicryl skin was closed with skin clips Next, an anterior midline incision was made over the region of the extensor extensor mechanism of the right knee. After meticulous hemostasis was obtained and maintained in subcutaneous tissues a medial parapatellar incision was made The patella was subluxed lateralward the medial lateral gutter were cleaned from any hypertrophic synovitis and scar tissue of the distal femoral block was placed and the distal femoral osteotomy cut was made subsequently the chamfers anterior and posterior osteotomy cuts were made utilizing the 4-in-1 block the tibia was subsequently subluxed anteriorward medial and ateral meniscal remnants were excised in their entirety remnants of the anterior and posterior cruciate ligaments were excised in their entirety excellent exposure of the proximal tibia was obtained the tibial osteotomy guide was placed on the proximal tibial osteotomy cut was made once again the knee was irrigated with copious amounts of sterile saline solution the patella was subsequently everted lateralward thickened scar tissue around the patella was removed the patella was subsequently cut utilizing a freehand technique and was drilled prepared for final preparation and placement of patella socially flexion-extension gaps were checked and the equal and symmetric trials were placed to the appropriate femoral and tibial trials with poly-spacer being placed for equal flexion and extension gaps and full range of motion including extension to 0 and flexion to 140 the trial components after having been taken to recovery range of motion was subsequently removed meticulous hemostasis was obtained and maintained subsequently a knee block injection of joint cocktail including ropivacaine 0.5% 150 mg. Bupivacaine 0.5% epinephrine 1-200,030 mL's toradol 30 mg dexamethasone 4 mg ketamine 10 mg clonidine 100 micrograms normal saline solution 30 mg was infiltrated into the soft tissues of the posterior knee medial lateral gutters and periosteal synovium special attention was paid to protect neurovascular structures at all times subsequently trial components having been removed the knee was irrigated with sterile saline solution. debris was removed the proximal tibia was subsequently prepared and was made ready for the placement of the tibial component tibial component was also cemented and tamped into position the femoral component was subsequently placed and cemented in the position the patellar component was subsequently cemented in position because hemostasis once again obtained and maintained wound having been thoroughly irrigated with debridement and debridement lavage was performed as well as a medial parapatellar incision closed with #1 Vicryl in interrupted fashion subcutaneous was closed with #2 Vicryl skin was closed with skin clips.. PA-C was necessary for prepping and drapping as well as wound closure of deep fascia Sub cutaneous tissue and skin and was necessary for the case. A sterile compressive dressings were placed, patient was taken to recovery in stable condition of report dictated by Temo I attest to the content of the Intraoperative Record and any orders documented therein. Any exceptions are noted below.Due to the complex nature of the procedure, the entire surgery was performed with the operational assistance of Camden TERRELL. The media assistant, under direct supervision, was involved in the actual performance of all aspects of the surgical procedure including hemostasis, tissue retraction and incision, instrument management, patient positioning, and wound closure. I attest to the content of the Intraoperative Record and any orders documented therein. Any exceptions are noted below.
[2021-10-09] MEDS ORDERED: HYDROmorphone INJ 2 MG/ML SYR/VIAL ONE (11:21)
--- NOTE | 2021-10-09 12:04 | XRay Report ---
TWO VIEWS RIGHT KNEE CLINICAL HISTORY: Postoperative examination. FINDINGS: AP and crosstable lateral portable views of the right knee are obtained. A right knee arthr oplasty is in near anatomic alignment. There has been undersurface remodeling of the patella. No acut e fracture is seen. There are expected postoperative changes around the knee including a surgical brynn in, soft tissue edema, and subcutaneous gas. IMPRESSION: Expected postoperative changes status post right knee arthroplasty. No acute fracture is seen. ACT 112: Negative or not required by law. Electronically signed by: Chavez Hyde M.D. 10/09/2021 12:03 PM
--- NOTE | 2021-10-09 12:14 | Anesthesiology Progress Note ---
Date of Service October 09, 2021 Anesthesia Post Procedure Vital Signs Vital Signs: Temp Pulse Pulse Resp BP Pulse Ox 10/09/21 12:05 36.5 C 81 17 132/96 93 10/09/21 11:55 80 18 131/85 95 10/09/21 11:45 84 9 L 123/92 93 10/09/21 11:35 88 11 L 119/76 94 10/09/21 11:29 36.0 C L 89 16 137/94 95 10/09/21 07:17 36.7 C 61 20 122/78 96 Pain Intensity Left Knee: Pain Intensity: 0 Right Knee: Pain Intensity: 0 Transfer of Care Handoff Completed per policy Notes Mental Status: alert / awake / arousable Patient Amnestic to Procedure: Yes Nausea / Vomiting: adequately controlled Pain: adequately controlled Airway Patency, RR, SpO2: stable & adequate BP & HR: stable & adequate Hydration State: stable & adequate Neuraxial Anesthesia: was administered and sensory block is resolving Anesthetic Complications: no major complications apparent
[2021-10-09] MEDS ORDERED: bisacodyL 10 MG SUPP PR PRN (12:56)
[2021-10-09] MEDS ORDERED: NALOXONE HCL 0.4 MG/1 ML VIAL/CARP IV PRN (12:56)
[2021-10-09] MEDS ORDERED: ONDANSETRON INJ 2 MG/ML 2 ML VIAL IV PRN (12:56)
[2021-10-09] MEDS ORDERED: ALBUTEROL HFA 8 GM INHALER INH PRN (12:56)
[2021-10-09] MEDS ORDERED: VANCOMYCIN CONSULT ACTIVE PRN (12:56)
[2021-10-09] MEDS ORDERED: MAGNESIUM HYDROXIDE SUSP 30 ML UDC PO PRN (12:56)
[2021-10-09] MEDS: oxyCODONE HCL IR 5 MG TAB (IMMEDIATE RELEASE) PO PRN ×2 (13:06→19:09)
[2021-10-09] MEDS: SODIUM CHLORIDE 0.9% 1000ML 1,000 ML IV SCH ×2 (13:07→22:20)
[2021-10-09] MEDS: ACETAMINOPHEN 500 MG TAB PO SCH ×2 (13:48→22:18)
[2021-10-09] MEDS: HYDROmorphone INJ 0.5 MG/0.5 ML SYR IV PRN ×2 (13:48→22:34)
--- NOTE | 2021-10-09 14:08 | XRay Report ---
XR knee LT 1 or 2V routine CLINICAL HISTORY: Surgical Post Op. Status post left knee replacement COMPARISON STUDY: None TECHNIQUE: 2 left knee views FINDINGS: The patient is status post total knee replacement. The prosthetic components are in anatomi c alignment with no acute abnormality seen. Air is present within the soft tissues from the procedure . Surgical drain is present. IMPRESSION: 1. Status post total knee replacement with resurfacing of the patella. ACT 112: Negative or not required by law. Electronically signed by: Ryley Herring M.D. 10/09/2021 2:06 PM
[2021-10-09] MEDS ORDERED: VANCOMYCIN HCL 1,500 MG in SODIUM CHLORIDE 0.9% 250 ML IV SCH (20:00)
[2021-10-09] MEDS: ESCITALOPRAM OXALATE 20 MG TAB PO SCH (20:41)
[2021-10-09] MEDS: DOCUSATE SODIUM 100 MG CAP PO SCH (20:41)
[2021-10-09] MEDS: PREGABALIN 100 MG CAP PO SCH (20:41)
[2021-10-09] MEDS: SENNA 8.6 MG TAB PO SCH (20:41)
[2021-10-10] MEDS: oxyCODONE HCL IR 5 MG TAB (IMMEDIATE RELEASE) PO PRN ×4 (01:43→13:34)
[2021-10-10] MEDS: HYDROmorphone INJ 0.5 MG/0.5 ML SYR IV PRN ×5 (03:53→17:40)
[2021-10-10] MEDS: ACETAMINOPHEN 500 MG TAB PO SCH ×3 (05:38→21:32)
[2021-10-10 06:10] LABS: Hematocrit (blood only) 28.8 % (40.1-51.0); Hemoglobin 9.7 g/dl (14.0-18.0); Mean Corpuscular Hemoglobin 29.5 pg (25.0-34.0); Mean Corpuscular Hgb Conc 33.7 g/dL (32.0-36.0); Mean Corpuscular Volume 87.5 fL (80.0-100.0); Mean Platelet Volume 9.7 fL (9.4-12.4); Platelet Count 170 K/uL (130-400); RDW Coefficient of Variation 12.2 % (11.5-14.5); RDW Standard Deviation 39.5 fL (36.4-46.3); Red Blood Count 3.29 M/uL (4.63-6.08); White Blood Count 13.38 K/ul (4.8-10.8)
[2021-10-10 06:33] LABS: BUN Creatinine Ratio 24.7 (10-20); Est GFR (African American) 115.1 ml/min; Est GFR (Non-African American) 99.3 ml/min; Potassium 4.1 mmol/L (3.5-5.1)
[2021-10-10] MEDS: CETIRIZINE HCL 10 MG TABLET PO SCH (08:02)
[2021-10-10] MEDS: lisinopril 20 MG TAB PO SCH (08:02)
[2021-10-10] MEDS: MONTELUKAST SODIUM 10 MG TABLET PO SCH (08:02)
[2021-10-10] MEDS: PANTOprazole 40 MG TAB PO SCH (08:02)
[2021-10-10] MEDS: RIVAROXABAN 10 MG TABLET PO SCH (08:02)
[2021-10-10] MEDS: DOCUSATE SODIUM 100 MG CAP PO SCH ×2 (08:02→21:30)
[2021-10-10] MEDS: MULTIVITAMIN TAB PO SCH (08:02)
[2021-10-10] MEDS: GABAPENTIN 100 MG CAP PO SCH (08:02)
[2021-10-10] MEDS: PREGABALIN 100 MG CAP PO SCH ×2 (08:07→21:35)
[2021-10-10] MEDS ORDERED: KETOROLAC 30 MG/ML VIAL IV ONE (09:40)
[2021-10-10] MEDS ORDERED: MoRPHine SULFATE CR 15 MG TABCR PO SCH (09:45)
--- NOTE | 2021-10-10 10:11 | Orthopedic Progress Note ---
Date of Service October 10, 2021 Assessment & Plan (1) Degenerative arthritis of knee, bilateral: Plan: Postop day 1 post bilateral total knee arthroplasty. Patient currently having pain control issues. We discussed his pain regimen. He is currently keeping up with his oxycodone every 4 hours as well as the Dilaudid. He states that the Dilaudid does help some. Discussed adding some things to his pain regimen. Toradol 30 mg IV every 6 hours scheduled for 24 hours, then as needed thereafter. We will also start him on MS Contin 15 mg p.o. twice daily here in the hospital but discussed that we would likely not send him home on it if we can help it. We will also decrease the timeline on his Dilaudid to every 3 hours. I will recheck him later this morning to see how his pain control is. Patient also mentioned about a sleep aid however at this time I discussed that I did not want to give any other medications that could further problems with his breathing. He understands. Possibility of adding melatonin to his medications. PT/OT protocols. Weightbearing as tolerated. As able. DVT prophylaxis-Xarelto p.o. daily, SCDs, [place]PER [place]. Pain management as noted above. DC planning-see how the patient progresses over the next day or so. Possibility of going home with home health services. Admission and Anticipated Discharge Date Admission Date: October 09, 2021 Subjective Postop day 1 Patient lying in bed. Therapist was present but canceling therapy session secondary to pain control. Patient is somewhat tearful this morning and states that his pain is a 10 out of 10. He states has been dealing with pain off and on throughout the night. No other complaints at this time. Denies shortness of breath, chest pain, lightheadedness. Physical Exam Physical Exam: Dressings are clean, dry, and intact. Calves are soft nontender. Neurovascular is intact. Toes are mobile. He has good dorsiflexion and plantarflexion of both feet. He states he has been able to do a little bit of straight leg raises and moving his ankles and toes without difficulty but continues to have moderate to severe pain in both knees. The knees do not look overtly swollen at this time. Hemovac drainage was 200 mL from the left knee and 175 mL from the right knee from the previous shift. Results & Data ([facility]) Vital Signs (Past 12 Hours) Vital Signs Temp Pulse Resp BP Pulse Ox 10/10/21 07:13 37.0 C 78 20 106/69 95 10/10/21 06:36 37.0 C 73 18 97/63 L 96 10/10/21 03:43 36.8 C 72 18 106/57 L 94 10/09/21 23:18 36.7 C 70 18 95/62 L 97 Laboratory Results Laboratory Results WBC 13.38 K/ul (4.8-10.8) H 10/10/21 05:50 RBC 3.29 M/uL (4.63-6.08) L 10/10/21 05:50 Hgb 9.7 g/dl (14.0-18.0) L 10/10/21 05:50 Hct 28.8 % (40.1-51.0) L 10/10/21 05:50 MCV 87.5 fL (80.0-100.0) 10/10/21 05:50 MCH 29.5 pg (25.0-34.0) 10/10/21 05:50 MCHC 33.7 g/dL (32.0-36.0) 10/10/21 05:50 RDW Std Deviation 39.5 fL (36.4-46.3) 10/10/21 05:50 RDW Coeff of Carmenza 12.2 % (11.5-14.5) 10/10/21 05:50 Plt Count 170 K/uL (130-400) 10/10/21 05:50 MPV 9.7 fL (9.4-12.4) 10/10/21 05:50 Sodium 137 mmol/L (136-145) 10/10/21 05:50 Potassium 4.1 mmol/L (3.5-5.1) 10/10/21 05:50 Chloride 107 mmol/L (98-107) 10/10/21 05:50 Carbon Dioxide 25 mmol/L (21-32) 10/10/21 05:50 Anion Gap 5 (3-11) 10/10/21 05:50 BUN 19 mg/dl (6-23) 10/10/21 05:50 Creatinine 0.77 mg/dl (0.6-1.4) 10/10/21 05:50 Est Cr Clr Drug Dosing 116.0 ml/min 10/10/21 05:50 Est GFR ( Amer) 115.1 ml/min 10/10/21 05:50 Est GFR (Non-Af Amer) 99.3 ml/min 10/10/21 05:50 BUN/Creatinine Ratio 24.7 (10-20) H 10/10/21 05:50 Glucose 119 mg/dl (70-99(Fasting)) H 10/10/21 05:50 POC Glucose 179 mg/dl (70-99) H 10/09/21 11:34 Calcium 8.0 mg/dl (8.5-10.1) L 10/10/21 05:50 SARS-CoV-2, RNA, NAAT NEGATIVE (NEGATIVE) 10/09/21 06:49 Impressions Knee X-Ray 10/09/21 11:34 XR knee LT 1 or 2V routine CLINICAL HISTORY: Surgical Post Op. Status post left knee replacement COMPARISON STUDY: None TECHNIQUE: 2 left knee views FINDINGS: The patient is status post total knee replacement. The prosthetic components are in anatomic alignment with no acute abnormality seen. Air is present within the soft tissues from the procedure. Surgical drain is present. IMPRESSION: 1. Status post total knee replacement with resurfacing of the patella. ACT 112: Negative or not required by law. Electronically signed by: Ryley Herring M.D. 10/09/2021 2:06 PM TWO VIEWS RIGHT KNEE CLINICAL HISTORY: Postoperative examination. FINDINGS: AP and crosstable lateral portable views of the right knee are obtained. A right knee arthroplasty is in near anatomic alignment. There has been undersurface remodeling of the patella. No acute fracture is seen. There are expected postoperative changes around the knee including a surgical drain, soft tissue edema, and subcutaneous gas. IMPRESSION: Expected postoperative changes status post right knee arthroplasty. No acute fracture is seen. ACT 112: Negative or not required by law.
[2021-10-10] MEDS: KETOROLAC 30 MG/ML VIAL IV SCH ×3 (10:36→21:32)
[2021-10-10] MEDS ORDERED: NALOXONE HCL 0.4 MG/1 ML VIAL/CARP IV PRN (18:20)
[2021-10-10] MEDS ORDERED: HYDROmorphone PCA 30 MG/30 ML IV PRN (18:20)
[2021-10-10] MEDS: SODIUM CHLORIDE 0.9% 1000ML 1,000 ML IV SCH (19:13)
[2021-10-10] MEDS: SENNA 8.6 MG TAB PO SCH (21:31)
[2021-10-10] MEDS: ESCITALOPRAM OXALATE 20 MG TAB PO SCH (21:31)
[2021-10-11] MEDS: KETOROLAC 30 MG/ML VIAL IV SCH ×3 (03:45→15:07)
[2021-10-11] MEDS: ACETAMINOPHEN 500 MG TAB PO SCH ×3 (05:26→21:25)
[2021-10-11 05:50] LABS: Hematocrit (blood only) 24.4 % (40.1-51.0); Hemoglobin 8.3 g/dl (14.0-18.0); Mean Corpuscular Hemoglobin 30.2 pg (25.0-34.0); Mean Corpuscular Volume 88.7 fL (80.0-100.0); Mean Platelet Volume 9.8 fL (9.4-12.4); Platelet Count 144 K/uL (130-400); RDW Coefficient of Variation 12.6 % (11.5-14.5); RDW Standard Deviation 40.4 fL (36.4-46.3); Red Blood Count 2.75 M/uL (4.63-6.08); White Blood Count 7.58 K/ul (4.8-10.8)
[2021-10-11 06:41] LABS: Creatinine Clr Calc Pharmacy 119.1 ml/min; Est GFR (African American) 116.4 ml/min; Est GFR (Non-African American) 100.4 ml/min; Potassium 4.2 mmol/L (3.5-5.1)
[2021-10-11] MEDS: GABAPENTIN 100 MG CAP PO SCH (08:24)
[2021-10-11] MEDS: MONTELUKAST SODIUM 10 MG TABLET PO SCH (08:25)
[2021-10-11] MEDS: CETIRIZINE HCL 10 MG TABLET PO SCH (08:25)
[2021-10-11] MEDS: MULTIVITAMIN TAB PO SCH (08:25)
[2021-10-11] MEDS: RIVAROXABAN 10 MG TABLET PO SCH (08:26)
[2021-10-11] MEDS: PANTOprazole 40 MG TAB PO SCH (08:26)
[2021-10-11] MEDS: DOCUSATE SODIUM 100 MG CAP PO SCH ×2 (08:26→21:26)
[2021-10-11] MEDS: lisinopril 20 MG TAB PO SCH (08:27)
[2021-10-11] MEDS: PREGABALIN 100 MG CAP PO SCH ×2 (08:28→21:25)
[2021-10-11] MEDS ORDERED: HYDROmorphone INJ 0.5 MG/0.5 ML SYR IV PRN (08:57)
--- NOTE | 2021-10-11 08:57 | Pain Management Consultation ---
Date of Consultation October 11, 2021 Assessment & Plan (1) History of bilateral knee arthroplasty: 1. Continue Oxycodone 10mg x 4 hours PRN pain 2. I have added OxyContin 10mg BID to his medication regimen. 3. Dilaudid COLLECTION ADVISOR was discontinued 4. I have ordered Dilaudid 0.5mg IV x 6 hours PRN breakthrough pain. I have emphasized the importance of the patient not using IV Dilaudid in preparation for discharge and he is understanding. 5. Recommend the oral OxyContin for 1-2 weeks postop in addition to his chronic Oxycodone 10/325mg QID dosing. After 1-2 weeks he can resume his chronic Oxycodone 10/325mg QID only. Thank you for the consultation. Please contact with any questions or concerns. History of Present Illness Reason for Consultation: Bilateral knee pain Attending Physician: Jerardo Plascencia, History of Present Illness Mr. Gusman is a 61-year-old male that had bilateral knee arthroplasties by Dr. Plascencia on 10/09/2021. He was having difficulty with postop pain control. Patient has chronically been on Percocet 10/325 mg 4 times daily for about 10 years for chronic back pain. Postoperatively he received 1 dose of MS Contin and placed on Dilaudid COLLECTION ADVISOR. Patient does find the Dilaudid COLLECTION ADVISOR to be efficacious towards diminishing his pain. He is also receiving oral oxycodone 10 mg every 4 hours if needed. He states that the left knee has very little pain. There is more aching pain in the right knee. Patient has been able to ambulate with the use of a walker. Patient denies any side effects to the medication. No constipation, drowsiness, confusion. Pain Assessment Full Body Front + Back: 1. 2. Allergies Allergy/AdvReac Type Severity Reaction Status Date / Time Penicillins Allergy Severe SHORTNESS Verified 10/09/21 07:11 OF BREATH azithromycin Allergy Intermediate Difficulty Verified 10/09/21 07:11 Breathing erythromycin base Allergy Intermediate E-MYCIN-HIV Verified 10/09/21 07:11 ES Quinolones Allergy Unknown Unknown Verified 10/09/21 07:11 DOGS Allergy Intermediate SNEEZES, Uncoded 10/09/21 07:11 ITCHY WATERY EYES Home Medications Medication Instructions Recorded Confirmed Type acetaminophen 650 mg 1,300 mg PO Q12H PRN 09/05/21 10/09/21 History tablet,extended release albuterol sulfate 90 mcg/actuation 2 puff INHALATION QID PRN 09/05/21 10/09/21 History aerosol inhaler cetirizine 10 mg capsule (Zyrtec) 10 mg PO QAM 09/05/21 10/09/21 History escitalopram oxalate 20 mg tablet 20 mg PO QPM 09/05/21 10/09/21 History (Lexapro) gabapentin 100 mg tablet 100 mg PO QAM 09/05/21 10/09/21 History ibuprofen 200 mg tablet 600 mg PO Q6H PRN 09/05/21 10/09/21 History lisinopril 20 mg tablet 20 mg PO QAM 09/05/21 10/09/21 History montelukast 10 mg tablet 10 mg PO QAM 09/05/21 10/09/21 History (Singulair) multivitamin 1 tab PO QAM 09/05/21 10/09/21 History omeprazole 20 mg capsule,delayed 20 mg PO QAM 09/05/21 10/09/21 History release pregabalin 100 mg capsule (Lyrica) 100 mg PO BID 09/05/21 10/09/21 History Patient History Medical History Asthma (05/15/11) last rescue inhaler use > 6 months ago; reports occasional exacerbation with seasonal allergies Atrial fibrillation (08/07/11) s/p ablation per pt-now follows with PCP COPD (chronic obstructive pulmonary disease) Depression Fracture of right elbow had open fracture repair- post fall off ladder GERD (gastroesophageal reflux disease) controlled, stable per pt Hypertension controlled, stable per pt Morbid obesity (05/15/11) WT LOSS 200 LBS SINCE GASTRIC BYPASS Sleep apnea no device Type 2 diabetes mellitus hx IDDM, pt states no longer needing medication since gastric bypass; A1c 5.7% 09/2021 Surgical History H/O cardiac radiofrequency ablation 5 YRS AGO History of appendectomy History of arthroscopy LEFT KNEE History of bilateral knee arthroplasty History of cardioversion History of cholecystectomy History of gastric bypass History of shoulder surgery LEFT Family History Father Family history of diabetes mellitus Social History Smoking Status: Never smoker Smoking End Date: QUIT 15 YRS AGO; Second Hand Exposure: No; Do You Dip or Chew Tobacco: Yes (1 can q 2 days-advised); Hx Alcohol Use: No Hx Substance Use: No Preferred Language: Bhutanese Communication Ability: Effective Dobie Worker Required: No Beliefs That Will Affect Care: None Current Living Situation: Spouse and Family current occupational status: disabled Other Information That Helps Us Care for You: No Feels Safe at Home: Yes Safety Concerns: Feels Safe At This Time Assistive Devices: Walker Assistive Devices Comment: CANE PRN Physical Exam Physical Exam: GENERAL: This is a 61 year old male that is laying in the hospital bed in no acute distress. HEAD/FACE: Normocephalic and atraumatic. EYES: No drainage or conjunctival injection. ENT: Nose without bleeding or discharge. Oral mucosa moist. NECK: Full ROM without apparent pain. No swelling or masses noted. RESPIRATORY: Patient with unlabored breathing. No signs of respiratory distress. CHEST/AXILLA: Chest movement symmetrical. No deformities noted. ABDOMEN/GI: No distension BACK: Moves without difficulty SKIN: [place], warm and dry. No rash noted. MS/EXTREMITY: Knee incisions were not inspected. NEURO: Alert and appears oriented. Speech is fluent. Cranial Nerves are grossly intact. PSYCH: Alert, pleasant, affect is calm
[2021-10-11] MEDS: oxyCODONE HCL 10 MG TABCR (OxyCONTIN) PO SCH ×2 (09:34→21:25)
--- NOTE | 2021-10-11 09:43 | Orthopedic Progress Note ---
Date of Service October 11, 2021 Assessment & Plan (1) Degenerative arthritis of knee, bilateral: Plan: Patient revealed he was on chronic Percocet at home not listed in chart. Pain control recommendations made by pain management team. Discontinue POTATO SORTER. Patient to be started on OxyContin 10 mg p.o. twice daily. Continue oxycodone 10 mg every 4 hours while in the hospital. 0.5 mg IV Dilaudid for breakthrough pain if needed. It has been discussed with the patient that he needs to stay away from the IV Dilaudid if possible to help plan for his discharge. Planning for postop discharge pain medications through Dr. Plascencia's office to include the OxyContin and going back to his regular 10 mg of Percocet every 6 hours. We will see how he does today with his pain control and consider discharge at that point. PT/OT protocols. Weightbearing as tolerated. As able. DVT prophylaxis-Xarelto p.o. daily, SCDs, PROSPER hose. Pain management as noted above. DC planning-see how the patient progresses and plan for dc accordingly. Admission and Anticipated Discharge Date Admission Date: October 09, 2021 Subjective Postop day 2 Yesterday evening, I was called by nursing staff who said that the patient was having worsening pain and was very tearful. When seeing him in the afternoon, his pain was controlled at that time. However, even after all the adjustments that we had made he was having worsening pain. Nursing took his dressings down and reported no obvious problems. His pain was in both knees and fluctuated [id number] in severity. Started POTATO SORTER hydromorphone with the help of pharmacy. At that time discontinued his IV Dilaudid, MS Contin. This morning the patient is awake and alert. States he was able to sleep a little bit last night. Pain control seems to be adequate. Pain management team was in to see the patient this morning for consult. Recommendations have been made and his POTATO SORTER Dilaudid has been discontinued. Patient is agreeable to their recommendations. Physical Exam Physical Exam: Felicia dressings are clean, dry, and intact. Patient has swelling consistent with surgery. Swelling is not tense. Calves are soft and nontender. Neurovascular is intact. Toes are mobile. Patient was having some sciatic pain of which she has had in the past and has been relieved with placing a pillow under his right lower back and buttock. Results & Data ([facility]) Vital Signs (Past 12 Hours) Vital Signs Temp Pulse Resp BP Pulse Ox 10/11/21 09:33 36.8 C 99 H 18 96/64 L 94 10/11/21 08:23 105/73 10/11/21 07:18 36.7 C 94 H 17 104/64 94 10/11/21 04:30 36.4 C L 95 H 16 112/72 93 10/10/21 22:47 36.8 C 86 18 110/69 97 Laboratory Results 10/11/21 10/11/21 10/10/21 Range/Units 05:18 05:18 11:45 WBC 7.58 (4.8-10.8) K/ul RBC 2.75 L (4.63-6.08) M/uL Hgb 8.3 L (14.0-18.0) g/dl Hct 24.4 L (40.1-51.0) % MCV 88.7 (80.0-100.0) fL MCH 30.2 (25.0-34.0) pg MCHC 34.0 (32.0-36.0) g/dL RDW Std Deviation 40.4 (36.4-46.3) fL RDW Coeff of Carmenza 12.6 (11.5-14.5) % Plt Count 144 (130-400) K/uL MPV 9.8 (9.4-12.4) fL Sodium 135 L (136-145) mmol/L Potassium 4.2 (3.5-5.1) mmol/L Chloride 106 (98-107) mmol/L Carbon Dioxide 26 (21-32) mmol/L Anion Gap 3 (3-11) BUN 18 (6-23) mg/dl Creatinine 0.75 (0.6-1.4) mg/dl Est Cr Clr Drug Dosing 119.1 ml/min Est GFR ( Amer) 116.4 ml/min Est GFR (Non-Af Amer) 100.4 ml/min BUN/Creatinine Ratio 24.0 H (10-20) Glucose 106 H (70-99(Fasting)) mg/dl POC Glucose 134 H (70-99) mg/dl Calcium 8.0 L (8.5-10.1) mg/dl
[2021-10-11] MEDS: oxyCODONE HCL IR 5 MG TAB (IMMEDIATE RELEASE) PO PRN ×2 (12:53→19:52)
[2021-10-11 13:23] LABS: Hematocrit (blood only) 23.5 % (40.1-51.0); Hemoglobin 7.9 g/dl (14.0-18.0)
[2021-10-11] MEDS ORDERED: SODIUM CHLORIDE 0.9% 250 ML IV PRN (15:38)
[2021-10-11] MEDS ORDERED: ACETAMINOPHEN 325 MG TAB PO ONE (15:38)
--- NOTE | 2021-10-11 15:54 | Hospitalist Consultation ---
Date of Consultation October 11, 2021 Assessment & Plan (1) Shortness of breath: Reportedly intermittent during episodes of pain. Appears to have recovered from this. CXR clear No COPD exacerbation clinically Mild anemia with Hgb 7.9 -> transfusing 1 unit packed RBCs per orthopedics, repeat CBC in AM Aim O2 sats > 90% (2) History of bilateral knee arthroplasty: VTE Prophylaxis and pain management per orthopedics and pain management (3) Postoperative anemia: Given tachycardia, hypotension and Hgb trending down agree with transfusion of 1 unit packed RBCs and repeating CBC in AM Suspect from operation given b/l TKA however will also get FOB given he has been on toradol, Xarelto with history of gastric bypass. Hold Toradol (4) Hypertension: Hold lisinopril given relative hypotension (5) COPD (chronic obstructive pulmonary disease): Continue Stiolto Respimat History of Present Illness Reason for Consultation: Shortness of breath Attending Physician: Jerardo Plascencia, DO History of Present Illness John Paul Gusman is a 61 year old male here for elective bilateral total knee replacement performed 2 days ago. Medicine consulted for new onset shortness of breath and history of COPD. The patient currently reports his shortness of breath has resolved but he was feeling short of breath earlier today due to pain. He reports starting on Stiolto Respimat pre-operatively due to some wheezing which has helped with this. No recent COPD exacerbation. No current chest pain, palpitations, leg swelling, cough fever or chills. He is significantly anemic post operatively with Hgb trending down to 7.9 this afternoon. He denies any dizziness or chest pain. Awaiting 1 unit packed RBCs ordered by orthopedics. He denies any abdominal pain, heartburn, melena or bright red blood in stool. He denies any history of gastric ulcer although he does report a history of gastric bypass surgery. Allergies Allergy/AdvReac Type Severity Reaction Status Date / Time Penicillins Allergy Severe SHORTNESS Verified 10/09/21 07:11 OF BREATH azithromycin Allergy Intermediate Difficulty Verified 10/09/21 07:11 Breathing erythromycin base Allergy Intermediate E-MYCIN-HIV Verified 10/09/21 07:11 ES Quinolones Allergy Unknown Unknown Verified 10/09/21 07:11 DOGS Allergy Intermediate SNEEZES, Uncoded 10/09/21 07:11 ITCHY WATERY EYES Home Medications Medication Instructions Recorded Confirmed Type acetaminophen 650 mg 1,300 mg PO Q12H PRN 09/05/21 10/09/21 History tablet,extended release albuterol sulfate 90 mcg/actuation 2 puff INHALATION QID PRN 09/05/21 10/09/21 History aerosol inhaler cetirizine 10 mg capsule (Zyrtec) 10 mg PO QAM 09/05/21 10/09/21 History escitalopram oxalate 20 mg tablet 20 mg PO QPM 09/05/21 10/09/21 History (Lexapro) gabapentin 100 mg tablet 100 mg PO QAM 09/05/21 10/09/21 History ibuprofen 200 mg tablet 600 mg PO Q6H PRN 09/05/21 10/09/21 History lisinopril 20 mg tablet 20 mg PO QAM 09/05/21 10/09/21 History montelukast 10 mg tablet 10 mg PO QAM 09/05/21 10/09/21 History (Singulair) multivitamin 1 tab PO QAM 09/05/21 10/09/21 History omeprazole 20 mg capsule,delayed 20 mg PO QAM 09/05/21 10/09/21 History release pregabalin 100 mg capsule (Lyrica) 100 mg PO BID 09/05/21 10/09/21 History doxycycline hyclate 100 mg capsule 100 mg PO BID 14 Days #28 cap 10/11/21 Rx oxycodone 10 mg tablet,crush 10 mg PO Q12 #14 tab 10/11/21 Rx resistant,extended release 12 hr (OxyContin) oxycodone-acetaminophen 10 mg-325 1 tab PO Q6H #30 tab 10/11/21 Rx mg tablet (Percocet) polyethylene glycol 3350 17 gram 17 g PO DAILY PRN #5 ea 10/11/21 Rx oral powder packet (Miralax) rivaroxaban 10 mg tablet (Xarelto) 10 mg PO DAILY 30 Days #30 tab 10/11/21 Rx tiotropium 2.5 mcg-olodaterol 2.5 2 inh INHALATION DAILY 10/12/21 10/12/21 History mcg/actuation mist for inhalation (Stiolto Respimat) Patient History Medical History (Updated 10/11/21 @ 16:42 by Bienvenido Uribe MD) Asthma (05/15/11) last rescue inhaler use > 6 months ago; reports occasional exacerbation with seasonal allergies Atrial fibrillation (08/07/11) s/p ablation per pt-now follows with PCP COPD (chronic obstructive pulmonary disease) Depression Fracture of right elbow had open fracture repair- post fall off ladder GERD (gastroesophageal reflux disease) controlled, stable per pt Hypertension controlled, stable per pt Morbid obesity (05/15/11) WT LOSS 200 LBS SINCE GASTRIC BYPASS Sleep apnea no device Type 2 diabetes mellitus hx IDDM, pt states no longer needing medication since gastric bypass; A1c 5.7% 09/2021 Surgical History H/O cardiac radiofrequency ablation 5 YRS AGO History of appendectomy History of arthroscopy LEFT KNEE History of bilateral knee arthroplasty History of cardioversion History of cholecystectomy History of gastric bypass History of shoulder surgery LEFT Family History Father Family history of diabetes mellitus Social History Smoking Status: Never smoker Smoking End Date: QUIT 15 YRS AGO; Second Hand Exposure: No; Do You Dip or Chew Tobacco: Yes (1 can q 2 days-advised); Hx Alcohol Use: No Hx Substance Use: No Preferred Language: Georgian Communication Ability: Effective Electrical Appliance Servicer Required: No Beliefs That Will Affect Care: None Current Living Situation: Spouse and Family current occupational status: disabled Other Information That Helps Us Care for You: No Feels Safe at Home: Yes Safety Concerns: Feels Safe At This Time Assistive Devices: Walker Assistive Devices Comment: CANE PRN Review of Systems Review of Systems: All systems reviewed & are unremarkable except as noted in HPI & below Physical Exam Constitutional: WD/WN, vitals as above Eyes: + anicteric sclerae; normal pupil size Respiratory: normal respiratory effort, lungs clear to auscultation Auscultation: no crackles and no wheezes Cardiovascular: Rate/Rhythm: regular rhythm and + tachycardic Heart Sounds: no murmur Extremities: normal capillary refill; no calf tenderness and no pedal edema Gastrointestinal (Abdomen): normal bowel sounds, soft, nontender, no hepatosplenomegaly Skin: no rashes, warm and dry Neurologic: moves all extremities and awake; not confused Psychiatric: A+Ox3, euthymic affect Results & Data Results & Data ([facility]) Vital Signs (Past 12 Hours) Vital Signs Temp Pulse Resp BP Pulse Ox 10/11/21 15:02 37.1 C 106 H 19 91/57 L 96 10/11/21 09:33 36.8 C 99 H 18 96/64 L 94 10/11/21 08:23 105/73 10/11/21 07:18 36.7 C 94 H 17 104/64 94 10/11/21 04:30 36.4 C L 95 H 16 112/72 93 PG Care Time/CCT Total # of Minutes Spent Total Time Spent with Patient: Total time spent is greater than 50% in coordination of care (as documented) at patient's floor/unit and/or counseling patient: Coding Level of Care Code 92922 Inpt Consult Level 4 Diagnoses Postoperative anemia D64.9 History of bilateral knee arthroplasty Z96.653 Hypertension I10 COPD (chronic obstructive pulmonary disease) J44.9 Shortness of breath R06.02
--- NOTE | 2021-10-11 16:02 | XRay Report ---
XR chest 1V portable HISTORY: 61 years-old Male new onset SOB acute shortness of breath COMPARISON: Chest radiograph 09/06/2021 TECHNIQUE: Portable AP view of the chest FINDINGS: Cardiomediastinal and hilar silhouettes are within normal limits. Mild linear subsegmental bibasilar atelectasis/scarring. There is no pneumothorax, pleural effusion, airspace consolidation or overt pul monary edema. Thoracic dextroscoliosis with degenerative changes of the shoulders and spine. IMPRESSION: No acute process. ACT 112: Negative or not required by law. The above report was generated using voice recognition software. It may contain grammatical, syntax o r spelling errors. Electronically signed by: Adam Rutherford M.D. 10/11/2021 4:01 PM
[2021-10-11] MEDS: SODIUM CHLORIDE 0.9% 1000ML 1,000 ML IV SCH (19:20)
[2021-10-11] MEDS: MELATONIN 3 MG TAB PO PRN (21:25)
[2021-10-11] MEDS: SENNA 8.6 MG TAB PO SCH (21:25)
[2021-10-11] MEDS: ESCITALOPRAM OXALATE 20 MG TAB PO SCH (21:25)
--- NOTE | 2021-10-11 23:59 | Electrocardiogram Report ---
Test Reason : Blood Pressure : / mmHG Vent. Rate : 099 BPM Atrial Rate : 099 BPM P-R Int : 160 ms QRS Dur : 090 ms QT Int : 334 ms P-R-T Axes : 076 056 057 degrees QTc Int : 428 ms Normal sinus rhythm Normal ECG When compared with ECG of 06-SEP-2021 09:23, Vent. rate has increased BY 48 BPM Confirmed by Harris Gutierrez ([id number]) on 10/11/2021 11:58:29 PM Referred By: Jerardo Plascencia Confirmed By:Harris Gutierrez
[2021-10-12] MEDS: ACETAMINOPHEN 500 MG TAB PO SCH ×3 (05:52→21:02)
[2021-10-12 06:01] LABS: Basophils # (auto) 0.04 K/uL (0-0.2); Basophils % (auto) 0.4 %; Eosinophils # (auto) 0.35 K/uL (0-0.50); Eosinophils % (auto) 3.7 %; Hematocrit (blood only) 22.9 % (40.1-51.0); Hemoglobin 7.9 g/dl (14.0-18.0); Immature Granulocytes # (auto) 0.05 K/uL (0.00-0.02); Immature Granulocytes % (auto) 0.5 %; Lymphocytes # (auto) 1.78 K/uL (1.2-3.4); Lymphocytes % (auto) 18.9 %; Mean Corpuscular Hgb Conc 34.5 g/dL (32.0-36.0); Mean Corpuscular Volume 87.1 fL (80.0-100.0); Mean Platelet Volume 9.9 fL (9.4-12.4); Monocytes # (auto) 0.98 K/uL (0.24-0.82); Monocytes % (auto) 10.4 %; Neutrophils # (auto) 6.21 K/uL (1.4-6.5); Neutrophils % (auto) 66.1 %; Platelet Count 147 K/uL (130-400); RDW Coefficient of Variation 13.2 % (11.5-14.5); RDW Standard Deviation 41.7 fL (36.4-46.3); Red Blood Count 2.63 M/uL (4.63-6.08); White Blood Count 9.41 K/ul (4.8-10.8)
[2021-10-12] MEDS: oxyCODONE HCL IR 5 MG TAB (IMMEDIATE RELEASE) PO PRN ×3 (07:21→17:42)
[2021-10-12] MEDS: PREGABALIN 100 MG CAP PO SCH ×2 (08:38→21:09)
[2021-10-12] MEDS: oxyCODONE HCL 10 MG TABCR (OxyCONTIN) PO SCH ×2 (08:38→21:03)
[2021-10-12] MEDS: DOCUSATE SODIUM 100 MG CAP PO SCH ×2 (08:39→21:03)
[2021-10-12] MEDS: CETIRIZINE HCL 10 MG TABLET PO SCH (08:39)
[2021-10-12] MEDS: PANTOprazole 40 MG TAB PO SCH (08:39)
[2021-10-12] MEDS: GABAPENTIN 100 MG CAP PO SCH (08:39)
[2021-10-12] MEDS: MULTIVITAMIN TAB PO SCH (08:39)
[2021-10-12] MEDS: MONTELUKAST SODIUM 10 MG TABLET PO SCH (08:39)
[2021-10-12] MEDS ORDERED: UMECLIDINIUM/VILANTEROL 62.5/25MCG 7 PUFFS/INHALER INH SCH (11:00)
--- NOTE | 2021-10-12 11:05 | Orthopedic Progress Note ---
Date of Service October 12, 2021 Assessment & Plan (1) Degenerative arthritis of knee, bilateral: Plan: Patient revealed he was on chronic Percocet at home not listed in chart. Pain control recommendations made by pain management team. Discontinue [employer]. Patient to be started on OxyContin 10 mg p.o. twice daily. Continue oxycodone 10 mg every 4 hours while in the hospital. 0.5 mg IV Dilaudid for breakthrough pain if needed. It has been discussed with the patient that he needs to stay away from the IV Dilaudid if possible to help plan for his discharge. Planning for postop discharge pain medications through Dr. Plascencia's office to include the OxyContin and going back to his regular 10 mg of Percocet every 6 hours. We will see how he does today with his pain control and consider discharge at that point.: Patient notes improvements with pain. He feels comfortable at this time and is going to be getting up for therapy in a little bit. Will see how pain is controlled after therapy. Will repeat CBC in am as he did stay at 7.9 but feels better. BP/HR slight improvement and SOB. PT/OT protocols. Weightbearing as tolerated. As able. DVT prophylaxis-Xarelto p.o. daily, SCDs, [place]. Pain management as noted above. DC planning-see how the patient progresses and plan for dc accordingly. Admission and Anticipated Discharge Date Admission Date: October 11, 2021 Subjective Resting in bed. Feels better since given some blood. Pain feels better, doesn't feel as SOB. He notes pain is controlled at this time but hasnt been doing much. Physical Exam Physical Exam: Toes mobile, NVI. Calves soft, non tender. Dressing in place. NERY in place Results & Data ([facility]) Vital Signs (Past 12 Hours) Vital Signs Temp Pulse Resp BP Pulse Ox 10/12/21 08:24 97 H 16 96 10/12/21 07:12 37.1 C 95 H 20 110/71 94
[2021-10-12] MEDS: TIOTROPIUM BR/OLODATEROL HCL INHALER INH SCH (12:06)
--- NOTE | 2021-10-12 12:20 | Hospitalist Progress Note ---
Date of Service October 12, 2021 Assessment & Plan (1) Shortness of breath: Plan: Now resolved. Suspected from pain +/- anemia. CXR clear No COPD exacerbation clinically Aim O2 sats > 90% (2) Postoperative anemia: Plan: Hgb 7.9 post operatively -> s/p 1 unit packed RBCs 10/11, remains 7.9, will repeat this afternoon. Transfuse if symptomatic or Hgb < 7. Suspect from operation given b/l TKA and FOB -ve Hold Toradol Given remains asymptomatic can continue Xarelto (initially held this morning but given as a one time dose at 1pm) for VTE Prophylaxis. (3) History of bilateral knee arthroplasty: Plan: VTE Prophylaxis and pain management per orthopedics and pain management (4) Hypertension: Plan: Hold lisinopril given relative hypotension (5) COPD (chronic obstructive pulmonary disease): Plan: Continue Stiolto Respimat Plan: Thank you for the consult will continue to review patient to manage anemia. Discussed case with Gwen Villarreal PA-C. Admission and Anticipated Discharge Date Admission Date: October 11, 2021 Subjective Patient reports feeling improved this morning after blood transfusion and in hindsight he was short of breath on exertion and had some dizziness which has now resolved. However hemoglobin did not increase despite 1 unit packed RBCs and remains at 7.9. FOB not yet done but he reports not melena, bright red blood in stool, nausea, vomiting, diarrhea or abdominal pain. Review of Systems Review of Systems: All systems reviewed & are unremarkable except as noted in Subjective Physical Exam Constitutional: WD/WN, vitals as above Eyes: + anicteric sclerae; normal pupil size Respiratory: normal respiratory effort, lungs clear to auscultation Auscultation: no crackles and no wheezes Cardiovascular: Rate/Rhythm: regular rhythm and + tachycardic Heart Sounds: no murmur Extremities: normal capillary refill; no calf tenderness and no pedal edema Gastrointestinal (Abdomen): normal bowel sounds, soft, nontender, no hepatosplenomegaly Skin: no rashes, warm and dry Neurologic: moves all extremities and awake; not confused Psychiatric: A+Ox3, euthymic affect Results & Data Results & Data ([facility]) Vital Signs (Past 12 Hours) Vital Signs Temp Pulse Resp BP Pulse Ox 10/12/21 08:24 97 H 16 96 10/12/21 07:12 37.1 C 95 H 20 110/71 94 PG Care Time/CCT Total # of Minutes Spent Total Time Spent with Patient: Total time spent is greater than 50% in coordination of care (as documented) at patient's floor/unit and/or counseling patient: Coding Level of Care Code 79795 Subseq Hosp Care Lvl 2 Diagnoses Shortness of breath R06.02 History of bilateral knee arthroplasty Z96.653 Postoperative anemia D64.9 Hypertension I10 COPD (chronic obstructive pulmonary disease) J44.9
[2021-10-12] MEDS ORDERED: RIVAROXABAN 10 MG TABLET PO ONE (12:22)
[2021-10-12 13:05] LABS: Alanine Aminotransferase 16 U/L (7-52); Aspartate Aminotransferase 17 U/L (13-39)
[2021-10-12 16:46] LABS: Hematocrit (blood only) 22.7 % (40.1-51.0); Hemoglobin 7.9 g/dl (14.0-18.0); Mean Corpuscular Hemoglobin 30.5 pg (25.0-34.0); Mean Corpuscular Hgb Conc 34.8 g/dL (32.0-36.0); Mean Corpuscular Volume 87.6 fL (80.0-100.0); Mean Platelet Volume 9.8 fL (9.4-12.4); Platelet Count 155 K/uL (130-400); RDW Standard Deviation 41.5 fL (36.4-46.3); Red Blood Count 2.59 M/uL (4.63-6.08)
[2021-10-12] MEDS: MELATONIN 3 MG TAB PO PRN (21:02)
[2021-10-12] MEDS: SENNA 8.6 MG TAB PO SCH (21:02)
[2021-10-12] MEDS: ESCITALOPRAM OXALATE 20 MG TAB PO SCH (21:03)
[2021-10-13] MEDS: oxyCODONE HCL IR 5 MG TAB (IMMEDIATE RELEASE) PO PRN ×2 (00:04→14:18)
[2021-10-13] MEDS: ACETAMINOPHEN 500 MG TAB PO SCH ×2 (06:07→13:30)
[2021-10-13 06:19] LABS: Hematocrit (blood only) 22.1 % (40.1-51.0); Hemoglobin 7.6 g/dl (14.0-18.0); Mean Corpuscular Hemoglobin 30.3 pg (25.0-34.0); Mean Corpuscular Hgb Conc 34.4 g/dL (32.0-36.0); Mean Platelet Volume 9.6 fL (9.4-12.4); Platelet Count 174 K/uL (130-400); RDW Coefficient of Variation 12.9 % (11.5-14.5); RDW Standard Deviation 41.6 fL (36.4-46.3); Red Blood Count 2.51 M/uL (4.63-6.08); White Blood Count 7.91 K/ul (4.8-10.8)
[2021-10-13 06:37] LABS: BUN Creatinine Ratio 18.5 (10-20); Creatinine Clr Calc Pharmacy 137.4 ml/min; Est GFR (African American) 123.4 ml/min; Est GFR (Non-African American) 106.5 ml/min; Potassium 3.8 mmol/L (3.5-5.1)
[2021-10-13] MEDS: CETIRIZINE HCL 10 MG TABLET PO SCH (09:06)
[2021-10-13] MEDS: oxyCODONE HCL 10 MG TABCR (OxyCONTIN) PO SCH (09:06)
[2021-10-13] MEDS: DOCUSATE SODIUM 100 MG CAP PO SCH (09:06)
[2021-10-13] MEDS: GABAPENTIN 100 MG CAP PO SCH (09:06)
[2021-10-13] MEDS: MONTELUKAST SODIUM 10 MG TABLET PO SCH (09:06)
[2021-10-13] MEDS: PREGABALIN 100 MG CAP PO SCH (09:06)
[2021-10-13] MEDS: RIVAROXABAN 10 MG TABLET PO SCH (09:07)
[2021-10-13] MEDS: MULTIVITAMIN TAB PO SCH (09:07)
[2021-10-13] MEDS: PANTOprazole 40 MG TAB PO SCH (09:07)
[2021-10-13] MEDS: TIOTROPIUM BR/OLODATEROL HCL INHALER INH SCH (09:07)
--- NOTE | 2021-10-13 13:41 | Orthopedic Progress Note ---
Date of Service October 12, 2021 Assessment & Plan (1) History of bilateral knee arthroplasty: Plan: communicated with Dr. Abreu. He feels patient is stable to go home. Patient would like to be discharged. PT/OT DVT prophylaxis: Ginette Vences Discharge today to home Pain meds oxycontin and Percocet Admission and Anticipated Discharge Date Admission Date: October 11, 2021 Subjective Patient resting comfortably in bed. He notes pain is controlled and feels good. he would like to go home. Denies CP, SOB. Physical Exam Physical Exam: Toes mobile, NVI. Calves soft, non tender. Dressing in place. pat in place Results & Data ([facility]) Vital Signs (Past 12 Hours) Vital Signs Temp Pulse Resp BP Pulse Ox 10/12/21 08:24 97 H 16 96 10/12/21 07:12 37.1 C 95 H 20 110/71 94
--- NOTE | 2021-10-13 16:05 | Hospitalist Progress Note ---
Date of Service October 13, 2021 Assessment & Plan (1) Shortness of breath: Plan: Now resolved. Suspected from pain +/- anemia. CXR clear No COPD exacerbation clinically Aim O2 sats > 90% (2) Postoperative anemia: Plan: Hgb 7.6 today, post transfusion Suspect from operation given b/l TKA and FOB -ve Hold Toradol Given remains asymptomatic can continue Xarelto (initially held this morning but given as a one time dose at 1pm) for VTE Prophylaxis. (3) History of bilateral knee arthroplasty: Plan: VTE Prophylaxis and pain management per orthopedics and pain management (4) Hypertension: Plan: Hold lisinopril given relative hypotension (5) COPD (chronic obstructive pulmonary disease): Plan: Continue Stiolto Respimat Plan: Thank you for the consult will continue to review patient to manage anemia. Discussed case with Gwen Villarreal PA-C. Admission and Anticipated Discharge Date Admission Date: October 11, 2021 Subjective patient seen and examined, says his knee pain is better Review of Systems Review of Systems: All systems reviewed are negative, apart from the ones contained in the history. Physical Exam Physical Exam: The patient is awake, alert and oriented 3, well developed and well nourished, normocephalic and atraumatic, lying in bed and in no acute distress. HEENT--PERRL, EOMI, mucous membranes and oropharynx mildly dry Neck--supple. No JVD. No bruits. Thyroid normal, trachea midline, no adenopa thy. Heart--normal S1 and S2. No murmurs, rubs or gallops. Lungs--clear bilaterally, no respiratory distress, no accessory muscle use. Abdomen--normal bowel sounds and soft. Mild epigastric and left sided abdominal pain Extremities--no cyanosis or clubbing. No edema. Dermatologic--normal skin turgor, normal color, no abnormal lymph nodes, no rash. Neurologic--cranial nerves II through XII grossly intact. Rheumatologic--normal range of motion. Psychiatric--normal affect. Results & Data Results & Data ([facility]) Vital Signs (Past 12 Hours) Vital Signs Temp Pulse Resp BP Pulse Ox 10/13/21 14:22 98.6 F 88 16 116/73 96 10/13/21 07:09 98.6 F 88 16 116/73 96 PG Care Time/CCT Total # of Minutes Spent Total Time Spent with Patient: Total time spent is greater than 50% in coordination of care (as documented) at patient's floor/unit and/or counseling patient: Coding Level of Care Code 73316 Inpt Consult Level 2 Diagnoses Shortness of breath R06.02 Postoperative anemia D64.9 History of bilateral knee arthroplasty Z96.653 Hypertension I10 COPD (chronic obstructive pulmonary disease) J44.9 Time Spent (min) 35
== END 2021-10-13 15:03 | disposition home health service (06) | DRG 462 ==
LOC: 3E 06:31 → ASU 06:31 → SUATTDRO 10-11 09:38
DX: D62 Acute posthemorrhagic anemia; G47.30 Sleep apnea, unspecified; Z98.84 Bariatric surgery status; F32.A Depression, unspecified; I48.91 Unspecified atrial fibrillation; E66.01 Morbid (severe) obesity due to excess calories; Z91.048 Other nonmedicinal substance allergy status; J44.9 Chronic obstructive pulmonary disease, unspecified; Z87.891 Personal history of nicotine dependence; Z68.36 Body mass index [BMI] 36.0-36.9, adult; M17.0 Bilateral primary osteoarthritis of knee; I10 Essential (primary) hypertension; Z90.49 Acquired absence of other specified parts of digestive tract; Z88.1 Allergy status to other antibiotic agents; E11.9 Type 2 diabetes mellitus without complications; K21.9 Gastro-esophageal reflux disease without esophagitis; Z88.0 Allergy status to penicillin